=== PATIENT | male | born 1990 | race Caucasian/White ===

== ENCOUNTER 2017-03-10 17:50 | Inpatient (IN) | payer OTHER ==
[2017-03-10 18:06] VITALS: BMI 29.9
--- NOTE | 2017-03-10 18:08 | PDOC ---
Rapid Medical Evaluation Chief Complaint: Substance Abuse Time Seen by Provider: 03/10/17 18:04 Medical Evaluation: Allergies Allergy/AdvReac Type Severity Reaction Status Date / Time No Known Allergies Allergy Verified 03/10/17 18:00 03/10/17 18:05 26yo male patient with history of alcohol abuse presented to ED with family c/o chest pain, and wanting rehab. Family states they tried to get patient into [address], but they would like patient sober. Patient cousin states he became concerned because patient c/o chest pain earlier.
[2017-03-10 18:26] LABS: BASO % 2.6 % (0-2.0); EOS % 0.1 % (0-4.5); HEMOGLOBIN 12.2 GM/dL (11.7-16.9); LYMPH % 17.2 % (8-40); MCH 24.2 pg (25.7-33.7); MCHC 32.1 g/dl (32.0-35.9); MEAN CELL VOLUME 75.6 fl (80-96); MONO % 11.6 % (3.8-10.2); NEUT % 68.5 % (42.8-82.8); PLATELET COUNT 113 K/MM3 (134-434); RBC 5.03 M/mm3 (4.00-5.60); RDW 21.4 % (11.9-15.9); WHITE BLOOD COUNT 4.4 K/mm3 (4.0-10.0)
--- NOTE | 2017-03-10 18:33 | PDOC ---
Attending Attestation - Resident Resident Name: Antoni Hassan - HPI HPI: 03/11/17 01:40 Pt presents to the ED complaining of left sided chest pain and epigastric pain following several days of heavy drinking. Denies fever, nausea or vomiting. Family is very concerned about the patient's heavy drinking and is attempting to obtain rehab for him. - Physicial Exam PE: 03/11/17 01:41 Agree with resident exam. Patient is alert and oriented. abdomen is non tender. patient is calm and cooperative without signs of sever ETOH withdrawal. - Medical Decision Making 03/11/17 01:42 Pt presents to the ED complaining of chest pain after binge drinking. EKg shows no signs of ischemia, but CK and initial troponin are mildly elevated. patient also has elevated lipase. Will give IV hydration, admit to observation for continued monitoring and IV hydration, repeat cardiac enzymes.
--- NOTE | 2017-03-10 19:07 | PDOC ---
History of Present Illness - General Chief Complaint: Substance Abuse Stated Complaint: DETOX Time Seen by Provider: 03/10/17 18:15 - History of Present Illness Initial Comments: 03/10/17 18:53 Pt is a 26 y/o M with PMH EtOH abuse. Pt is a poor historian accompanied by family who admits to possibly being still somewhat intoxicated. Pt states he used to drink occasionally when he lived in [place] until 6 mo ago when he moved to [place] and began drinking heavily. He currently drinks roughly 12 beers and a quart of hard liquor daily. Approximately 2 weeks ago, around he used cocaine and had a single episode of bloody vomit not necessarily at the same time (pt cannot remember many details surrounding those events). Pt's last drink was 3pm yesterday. He went to [facility] yesterday but family states he was not seen by a doctor so they eventually left and this afternoon decided to come here. Currently, pt complains of vague cp and abd pain. He is unable to characterize the pain but states that is has been happening on and off for the last 2 weeks. He also had a nosebleed yest which stopped on its own. Today, pt denies nausea, vomiting, diarrhea, urinary symptoms. Past History - Past Medical History Allergies/Adverse Reactions: Allergies Allergy/AdvReac Type Severity Reaction Status Date / Time No Known Allergies Allergy Verified 03/10/17 18:00 Home Medications: Ambulatory Orders NK [No Known Home Medication] 03/10/17 COPD: No Other medical history: DENIES. - Suicide/Smoking/Psychosocial Hx Smoking History: Current every day smoker Have you smoked in the past 12 months: Yes Number of Cigarettes Smoked Daily: 10 Information on smoking cessation initiated: No Hx Alcohol Use: Yes (3 BOTTLES OF VODKA DAILY) Substance Use Type: Alcohol Review of Systems - Review of Systems Able to Perform ROS?: Yes Is the patient limited Georgian proficient: Yes Constitutional: Yes: Symptoms Reported. No: Chills, Diaphoresis, Fever HEENTM: Yes: Symptoms Reported. No: Eye Pain, Blurred Vision Respiratory: Yes: Symptoms reported. No: Cough, Shortness of Breath Cardiac (ROS): Yes: Symptoms Reported, Chest Pain. No: Edema ABD/GI: Yes: Vomiting. No: Abdominal Distended, Blood Streaked Bowels, Constipated, Diarrhea, Rectal Bleeding, Abdominal cramping : Yes: Symptoms Reported. No: Burning, Dysuria, Discharge, Flank Pain, Hematuria Neurological: Yes: Symptoms reported, Headache *Physical Exam - Vital Signs Last Vital Signs Temp Pulse Resp BP Pulse Ox 98.4 F 76 16 149/88 95 03/10/17 18:00 03/10/17 18:00 03/10/17 18:00 03/10/17 18:00 03/10/17 18:00 - Physical Exam General Appearance: Yes: Nourished, Appropriately Dressed, Intoxicated (appears drowsy. Slurrs speech). No: Apparent Distress HEENT: positive: EOMI, NICCI. negative: Normal ENT Inspection (white leukoplakia , dry membarnes), Tonsillar Exudate, Tonsillar Erythema, Rhinorrhea Neck: positive: Supple. negative: Tender Respiratory/Chest: positive: Lungs Clear, Normal Breath Sounds. negative: Chest Tender, Respiratory Distress Cardiovascular: positive: Regular Rhythm, S1, S2, Tachycardia Vascular Pulses: Dorsalis-Pedis (R): 2+, Doralis-Pedis (L): 2+ Gastrointestinal/Abdominal: positive: Normal Bowel Sounds, Tender (LUQ), Soft, Other (no shifting dullness appreciated). negative: Guarding, Rebound Musculoskeletal: negative: CVA Tenderness Neurologic: positive: central services tech II-XII NML intact, Fully Oriented, Motor Strength 5/ 5. negative: Alert (drowsy) ED Treatment Course - LABORATORY CBC & Chemistry Diagram: 03/10/17 18:15 03/10/17 18:15 - ADDITIONAL ORDERS Additional order review: 03/10/17 18:15 RBC 5.03 MCV 75.6 L MCHC 32.1 RDW 21.4 H MPV 7.0 L Neutrophils % 68.5 Lymphocytes % 17.2 Monocytes % 11.6 H Eosinophils % 0.1 Basophils % 2.6 H Medical Decision Making - Medical Decision Making 03/10/17 19:11 Pt is a 26 y/o M with EtOH abuse and dependence who presents to the ED with cp, abdominal pain, malaise, bloody vomit 2 weeks ago. Plan -cbc -cmp -lipase -TGs -cardiac profile 03/10/17 20:07 Ketones, blood, and protein in urine Pt has likely not been eating well. gave banana bag 03/10/17 20:47 03/10/17 22:50 Labs significant for transaminitis, elevated CK, elevated lipase, pos Tn ( unlikely ACS as pt is young without preexisting heart disease or risk factors) 03/11/17 00:11 Spoke with hospitalist who accepts pt for admission for impending alcohol withdrawal. *DC/Admit/Observation/Transfer Diagnosis at time of Disposition: Withdrawal symptoms, alcohol Qualifiers: Complication of substance-induced condition: uncomplicated Qualified Code(s): F10.230 - Alcohol dependence with withdrawal, uncomplicated - Discharge Dispostion Disposition: HOME Condition at time of disposition: Stable Admit: Yes - Referrals - Patient Instructions - Post Discharge Activity
[2017-03-10 19:09] LABS: URINE APPEARANCE SLCLOUDY; URINE BLOOD 2+ (NEGATIVE); URINE COLOR AMBER; URINE GLUCOSE (UA) 1+ (NEGATIVE); URINE KETONE 2+ (NEGATIVE); URINE LEUK ESTERASE NEGATIVE (NEGATIVE); URINE NITRITE NEGATIVE (NEGATIVE); URINE UROBILINOGEN 4.0 E.U/dl mg/dL (0.2-1.0)
[2017-03-10 19:10] LABS: URINE PROTEIN 3+ (NEGATIVE)
[2017-03-10 19:13] LABS: URINE AMPHETAMINES NEGATIVE ng/ml (CUTOFF=500)
[2017-03-10 19:14] LABS: COCAINE, UR NEGATIVE ng/ml (CUTOFF=300); EPI CELLS RARE /HPF (FEW); GRANULAR CASTS 6 /lpf; METHADONE, UR NEGATIVE ng/ml (CUTOFF=300); OPIATES, URI NEGATIVE ng/ml (CUTOFF=300); PHENCYCLIDINE,URINE NEGATIVE ng/ml (CUTOFF=25); URINE BARBITURATES NEGATIVE ng/ml (CUTOFF=200); URINE BENZODIAZEPINES NEGATIVE ng/ml (CUTOFF=200); URINE MUCUS RARE
[2017-03-10] MEDS ORDERED: FOLIC ACID INJECTION - 1 MG, THIAMINE HCL 100 MG, MULTIVIT INJECTION ADULT 10 ML in SOD... IVPB ONE (20:29)
[2017-03-10 21:23] LABS: ALBUMIN 3.6 g/dl (3.4-5.0); AMYLASE 50 U/L (25-115); ANION GAP 16 (8-16); BILIRUBIN,TOTAL 2.2 mg/dL (0.2-1.0); BLOOD UREA NITROGEN 7 mg/dL (7-18); CHLORIDE 91 mmol/L (98-107); CO2 23 mmol/L (21-32); CREATININE 0.9 mg/dL (0.7-1.3); GLUCOSE,RANDOM 104 mg/dL (74-106); POTASSIUM 3.6 mmol/L (3.5-5.1); SGPT/ALT 159 U/L (12-78); SODIUM 130 mmol/L (136-145); TOT PROT 8.7 g/dl (6.4-8.2)
[2017-03-10 21:33] LABS: LIPASE 695 U/L (73-393); SGOT/AST 404 U/L (15-37)
[2017-03-10 21:36] LABS: ALK PHOS 139 U/L (45-117)
[2017-03-10] MEDS ORDERED: chlordiazePOXIDE HCL 25 MG CAPSULE PO ONE (23:53)
[2017-03-11] MEDS ORDERED: chlordiazePOXIDE HCL 25 MG CAPSULE ONE (00:24)
[2017-03-11 01:13] LABS: ADD RBC MORPHOLOGY YES; ANISOCYTOSIS 2+; MACROCYTOSIS 1+
[2017-03-11 01:14] LABS: PLATELET ESTIMATE SLT DECREASE
[2017-03-11] MEDS ORDERED: ONDANSETRON 4 MG/2 ML VIAL IVPUSH PRN (04:52)
[2017-03-11] MEDS ORDERED: LORazepam 1 MG TABLET PO PRN ×2 (05:00→14:13)
[2017-03-11] MEDS ORDERED: FOLIC ACID INJECTION - 1 MG, THIAMINE HCL 100 MG, MULTIVIT INJECTION ADULT 10 ML in SOD... IVPB ONE (05:30)
--- NOTE | 2017-03-11 06:07 | PN ---
Teaching Attending Note Name of Resident: Isabel Escobedo ATTENDING PHYSICIAN STATEMENT I saw and evaluated the patient. Yudy data, imaging reviewed/ I reviewed the resident's note and discussed the case with the resident. I agree with the resident's findings and plan as documented. SUBJECTIVE: 26 y/o M with PMH EtOH abuse, says he has been drinking beers and bottle of liquor for at least 3 years. Admits to using cocaine on karson. Pt presented intoxicated last drink was about yesterday. He reports feeling nausea and uneasiness. Given Librium in the ER. OBJECTIVE: Last Vital Signs Temp Pulse Resp BP Pulse Ox 98.4 F 76 16 149/88 95 03/10/17 18:00 03/10/17 18:00 03/10/17 18:00 03/10/17 18:00 03/10/17 18:00 general- disheveled, very tremulous, follows commands, fluent speech heent- at, nc, moist oral mucosa neck- supple cv-s1+s2+ rrr chest- cta b/l abdomen -mild RUQ discomfort upo palpaiton skin- no visible rashes Abnormal Lab Results 03/10/17 03/10/17 03/10/17 18:15 18:15 18:15 MCV 75.6 L MCH 24.2 L RDW 21.4 H Plt Count 113 L MPV 7.0 L Monocytes % 11.6 H Basophils % 2.6 H Sodium 130 L Chloride 91 L Calcium 8.0 L Total Bilirubin 2.2 H AST 404 H ALT 159 H Alkaline Phosphatase 139 H Creatine Kinase 2943 H CK-MB (CK-2) 31.824 H Troponin I 0.07 H Total Protein 8.7 H Lipase 695 H Urine Protein Urine Glucose (UA) Urine Ketones Urine Blood Alcohol, Quantitative 408.9 H* 03/10/17 18:20 MCV MCH RDW Plt Count MPV Monocytes % Basophils % Sodium Chloride Calcium Total Bilirubin AST ALT Alkaline Phosphatase Creatine Kinase CK-MB (CK-2) Troponin I Total Protein Lipase Urine Protein 3+ H Urine Glucose (UA) 1+ H Urine Ketones 2+ H Urine Blood 2+ H Alcohol, Quantitative ASSESSMENT AND PLAN: #Impending EtOH withdrawal - very high Etoh level >400 and likely high tolerance. -lorazepam 2 mg PO q6hrs standing -lorazepam 2mg IV q4hrs -IV fluid hydration -banana bag with folate, thiamine, MV -CIWA protocol -check Mg and PHos and supplement PRN -Zofran PRN -NPO for now #acute hepatitis- hepatotoxic transaminitis pattern. Likely 2/2 to etoh abuse. -avoid hepatotoxic meds -hepatitis panel -tylenol level -trend LFTs -Liver U/S #Thrombocytopenia- no signs of bleeding. Likely 2/2 to EtOH ingestion #Chest pain -unlikely acs as pt is young, however given recent cocain use, would obtain EKG and repeat troponin. -EKG -CXR -repeat troponin DVT ppx -SCDs -
[2017-03-11] MEDS ORDERED: FOLIC ACID 1 MG TABLET (FP) PO ONE (06:20)
--- NOTE | 2017-03-11 06:22 | HP ---
CHIEF COMPLAINT: chest pain HISTORY OF PRESENT ILLNESS: 26M with PMH of etoh abuse, presents with chest pain. Pt reports 1 episode of hematemesis on Eva Francesca after using cocaine, after which he developed a chronic cough. Pt c/o Left upper chest pain since the hematemesis/cocaine/ Eva Francesca which he attributes to the cough. Chest pain is reproducible on exam. Pt's last drink was 03/09/17. Pt is mostly concerned with his chest pain , but also c/o diffuse abdominal pain and nausea. Pt reports not eating much for days, but declines a sandwich offered. Pt denies vomiting, sob, fever, chills. ER course was notable for: (1) banana bag, Librium 50mg (2) transaminitis on cmp (3) mildly elevated trop 0.07 PAST MEDICAL HISTORY: none PAST SURGICAL HISTORY: none Social History: Smokin/2 ppd Alcohol: 12 beers + 1 quart hard liquor Drugs: cocaine Allergies No Known Allergies Allergy (Verified 03/10/17 18:00) HOME MEDICATIONS: Home Medications Medication Instructions Recorded NK [No Known Home Medication] 03/10/17 REVIEW OF SYSTEMS CONSTITUTIONAL: loss of appetite Absent: fever, chills, diaphoresis HEENT: Absent: rhinorrhea, nasal congestion, eye pain, visual changes CARDIOVASCULAR: chest pain Absent: peripheral edema RESPIRATORY: Absent: cough, shortness of breathwheezing, stridor GASTROINTESTINAL: abdominal pain, nausea Absent: abdominal distension, vomiting, diarrhea, constipation, melena, hematochezia GENITOURINARY: Absent: dysuria, frequency, urgency, hesitancy, hematuria, flank pain, genital pain MUSCULOSKELETAL: Absent: myalgia, arthralgia SKIN: Absent: rash, itching, pallor HEMATOLOGIC/IMMUNOLOGIC: Absent: easy bleeding, easy bruising, lymphadenopathy, frequent infections NEUROLOGIC: trembling/shakes, headache - resolved upon reassessment though no medication was given Absent: focal weakness or paresthesias PHYSICAL EXAMINATION Vital Signs - 24 hr 03/10/17 18:00 Temperature 98.4 F Pulse Rate 76 Respiratory 16 Rate Blood Pressure 149/88 O2 Sat by Pulse 95 Oximetry (%) GENERAL: Awake, alert, and fully oriented, in no acute distress. No longer intoxicated, however, still a poor historian. HEAD: Normal with no signs of trauma. EYES: Extraocular movements intact, sclera anicteric, conjunctiva clear. No lid lag. EARS, NOSE, THROAT: +thrush on tongue. NECK: Supple without lymphadenopathy, JVD, or masses. LUNGS: Breath sounds equal, clear to auscultation bilaterally. No wheezes, and no crackles. No accessory muscle use. CHEST: +tenderness to palpation of Left pectoral muscle HEART: Regular rate and rhythm, +S1/S2. ABDOMEN: +mild Left upper quadrant tenderness. Soft, not distended, normoactive bowel sounds, no guarding. -hepatojugular reflux, -shifting dullness. MUSCULOSKELETAL: Normal range of motion at all joints. No bony deformities or tenderness. LOWER EXTREMITIES: Warm, well-perfused. No calf tenderness. No peripheral edema. SKIN: Warm, dry, normal turgor, no rashes or lesions noted. Laboratory Results - last 24 hr 03/10/17 03/10/17 03/10/17 18:15 18:15 18:15 WBC 4.4 RBC 5.03 Hgb 12.2 Hct 38.0 MCV 75.6 L MCH 24.2 L MCHC 32.1 RDW 21.4 H Plt Count 113 L MPV 7.0 L Neutrophils % 68.5 Lymphocytes % 17.2 Monocytes % 11.6 H Eosinophils % 0.1 Basophils % 2.6 H Hypochromia 1+ Platelet Estimate Slt decrease Platelet Comment No clotting detected Anisocytosis 2+ Microcytosis 1+ Macrocytosis 1+ Sodium 130 L Potassium 3.6 Chloride 91 L Carbon Dioxide 23 Anion Gap 16 BUN 7 Creatinine 0.9 Creat Clearance w eGFR > 60 Random Glucose 104 Calcium 8.0 L Total Bilirubin 2.2 H AST 404 H ALT 159 H Alkaline Phosphatase 139 H Creatine Kinase 2943 H Creatine Kinase Index 1.0 CK-MB (CK-2) 31.824 H Troponin I 0.07 H Total Protein 8.7 H Albumin 3.6 Triglycerides Total Amylase 50 Lipase 695 H Urine Color Urine Appearance Urine pH Ur Specific Boaz Urine Protein Urine Glucose (UA) Urine Ketones Urine Blood Urine Nitrite Urine Bilirubin Urine Urobilinogen Ur Leukocyte Esterase Urine WBC (Auto) Urine RBC (Auto) Ur Epithelial Cells Granular Casts Urine Mucus Opiates Screen Methadone Screen Barbiturate Screen Phencyclidine Screen Ur Amphetamines Screen MDMA (Ecstasy) Screen Benzodiazepines Screen Cocaine Screen U Marijuana (THC) Screen Alcohol, Quantitative 408.9 H* 03/10/17 03/10/17 03/11/17 18:20 18:20 00:33 WBC RBC Hgb Hct MCV MCH MCHC RDW Plt Count MPV Neutrophils % Lymphocytes % Monocytes % Eosinophils % Basophils % Hypochromia Platelet Estimate Platelet Comment Anisocytosis Microcytosis Macrocytosis Sodium Potassium Chloride Carbon Dioxide Anion Gap BUN Creatinine Creat Clearance w eGFR Random Glucose Calcium Total Bilirubin AST ALT Alkaline Phosphatase Creatine Kinase Creatine Kinase Index CK-MB (CK-2) Troponin I Total Protein Albumin Triglycerides 128 Total Amylase Lipase Urine Color [place] Urine Appearance Slcloudy Urine pH 6.0 Ur Specific Boaz 1.030 Urine Protein 3+ H Urine Glucose (UA) 1+ H Urine Ketones 2+ H Urine Blood 2+ H Urine Nitrite Negative Urine Bilirubin 2.0 Urine Urobilinogen 4.0 e.u/dl Ur Leukocyte Esterase Negative Urine WBC (Auto) 1 Urine RBC (Auto) 9 Ur Epithelial Cells Rare Granular Casts 6 Urine Mucus Rare Opiates Screen Negative Methadone Screen Negative Barbiturate Screen Negative Phencyclidine Screen Negative Ur Amphetamines Screen Negative MDMA (Ecstasy) Screen Negative Benzodiazepines Screen Negative Cocaine Screen Negative U Marijuana (THC) Screen Negative Alcohol, Quantitative ASSESSMENT/PLAN: 26M with PMH of etoh abuse, presents with chest pain, admitted to Med-Surg inpatient for alcohol withdrawal syndrome. # chest pain - Ddx: musculoskeletal from cough vs cocaine chest pain vs ACS ( less likely) - trend trop - f/u CXR - f/u EKG # etoh withdrawal - ethanol 400+ - CIWA score = 8 - Ativan 2mg po q6hr standing + Ativan 2mg IVpush q4hr prn added - fall precautions - MVI, thiamine, folic acid # nausea - likely 2/2 etoh withdrawal - Zofran added - check EKG for QTc # transaminitis - likely 2/2 liver disease from hx of etoh - f/u hepatitis panel - f/u Liver US - continue to monitor # thrush on tongue - pt consented to HIV test, f/u - monitor, consider Nystatin # FEN - Fluids: banana bag x 2 since arrival - Electrolytes: hyponatremia noted, consider hydration with NS after 2nd banana bag finishes, continue to monitor - Nutrition: npo for now # Prophylaxis - DVT ppx with magdy SCDs . Visit type - Emergency Visit Emergency Visit: Yes ED Registration Date: 03/11/17 Care time: The patient presented to the Emergency Department on the above date and was hospitalized for further evaluation of their emergent condition. - New Patient This patient is new to me today: Yes Date on this admission: 03/11/17 - Critical Care Critical Care patient: No
[2017-03-11] MEDS: LORazepam 2 MG/ML SDV VIAL IVPUSH PRN ×4 (06:47→23:37)
[2017-03-11 09:29] LABS: HEMATOCRIT 34.2 % (35.4-49); HEMOGLOBIN 10.9 GM/dL (11.7-16.9); MCH 24.3 pg (25.7-33.7); MCHC 31.7 g/dl (32.0-35.9); MEAN CELL VOLUME 76.6 fl (80-96); MEAN PLT VOLUME 7.5 fl (7.5-11.1); PLATELET COUNT 76 K/MM3 (134-434); RBC 4.47 M/mm3 (4.00-5.60); WHITE BLOOD COUNT 5.4 K/mm3 (4.0-10.0)
[2017-03-11 09:42] LABS: INR 1.15 (0.82-1.09)
[2017-03-11 09:56] LABS: ALBUMIN 3.5 g/dl (3.4-5.0); ANION GAP 16 (8-16); BLOOD UREA NITROGEN 6 mg/dL (7-18); CALCIUM 7.6 mg/dL (8.5-10.1); CHLORIDE 96 mmol/L (98-107); CO2 22 mmol/L (21-32); CREATININE 0.7 mg/dL (0.7-1.3); GLUCOSE,RANDOM 76 mg/dL (74-106); MAGNESIUM 1.6 mg/dL (1.8-2.4); PHOSPHOROUS 3.1 mg/dL (2.5-4.9); POTASSIUM 3.4 mmol/L (3.5-5.1); SGOT/AST 333 U/L (15-37); SGPT/ALT 135 U/L (12-78); SODIUM 134 mmol/L (136-145)
--- NOTE | 2017-03-11 09:59 | PN ---
Teaching Attending Note Name of Resident: Linda Holt ATTENDING PHYSICIAN STATEMENT I saw and evaluated the patient. I reviewed the resident's note and discussed the case with the resident. I agree with the resident's findings and plan as documented. SUBJECTIVE: reports vomiting up blood since karson, , cough , L sided cp for 2 weeks . reports fallin a while ago( not sure when ) , Noticed black stool 3 days ago. has abd pain in LLQ . reports using marijuana and cocaine has OCASIO now , no visual changes or weakness. feels nauseous. OBJECTIVE: NAD , AAox3 HEENT: EOMI, minimal deviation of L eye to R. no jaundice , no facial droop. MMM. no JVD CV: RRR, no MRG lUngs : CTAB Ext: no edema , has tremor in hands, . scally dry skin on feet, moist whitish skin among toes MS : TTP in L chest wall . Abd: soft, obese, TTP in epigastric area, , no rebound tenderness or guarding, liver is palpated and percussed 2 cm below medial costal margin. + shifting dullness. Neuro : EOMI, round equal reactive pupils , L eye medial deviation , no facial droop, tongue at mid line , nl facial sensation , strength 5/5 in upper and lower extremities proximally and distally. Rectal exam with green liquid , neg for OB ASSESSMENT AND PLAN: 26 y/o man with no known PMH and which alcohol, cocaine and marijuana use , who presented due to CP . he was found to have transaminitis and upper GI bleed 1- CP : MS in etiology with TTP . recent fall, need to r/o rib Fx - check Rib xray . - EKG with no acute ischemic changes , just RBBB 2- Alcohol withdrawal: - ativan Iv and PO PRN - thiamine and folate . - NO signs of Wernicke's . 3- POssible upper GI bleed: reported bright red blood with vomiting and black stool . also hematemesis x 1 yr rectal with neg OB. No hematemesis here, but HB dropped to 10 after 1 L of fluids suspect either Vandana Brumfield tear or variceal bleed ( possibly has cirrhosis), or erosive gastritis from alcohol - check more OB ins tool - start PPI gtt - keep NPO - consult GI for possible EGD - check iron studies , b12 , folate . r/o iron def anemia due to microcytosis 4- Transaminitis: does not meet all criteria for alcoholic hepatitis. US with no choecystitis or CBD dilation likely due to alcohol liver toxicity - GI input appreciated, ? alcoholic hepatitis - check INR to calculate DF if indicated - follow LFTS - suspect cirrhosis background . - check viral hepatitis panel 5- OCASIO : with h/o fall . check CT of head . NL neuro exam except fr L eye medial deviation 6- Possible cirrhosis : thrombocytopenia , alcohol use, enlarged liver, possible ascitis . - check INR - might need MRCP. 7- SCDs .
[2017-03-11] MEDS ORDERED: PANTOPRAZOLE SODIUM 80 MG in SODIUM CHLORIDE 100 ML IVPB SCH (10:15)
[2017-03-11 10:19] LABS: ALK PHOS 121 U/L (45-117); BILIRUBIN,TOTAL 2.4 mg/dL (0.2-1.0); TOT PROT 7.7 g/dl (6.4-8.2)
[2017-03-11] MEDS ORDERED: KCL 10 MEQ IVPB 10 MEQ/100 ML INFUS.BAG IVPB SCH (10:30)
[2017-03-11] MEDS: THIAMINE HCL 100 MG TABLET (FP) PO SCH (10:59)
[2017-03-11] MEDS: MULTIVITAMINS (DAILY MVI) TABLET (FP) PO SCH (10:59)
[2017-03-11] MEDS: SODIUM CHLORIDE 1,000 ML IV SCH (10:59)
[2017-03-11] MEDS ORDERED: PANTOPRAZOLE SODIUM 160 MG in DEXTROSE 5%-WATER - 290 ML IVPB SCH (11:00)
[2017-03-11] MEDS ORDERED: MAGNESIUM SULF 50% (8.12 MEQ/2 ML-1 GM VIAL) IVPB ONE (11:00)
[2017-03-11] MEDS: FOLIC ACID 1 MG TABLET (FP) PO SCH (11:25)
[2017-03-11 12:48] LABS: INR 1.14 (0.82-1.09); PROTHROMBIN TIME (PATIENT) 12.9 SEC (9.98-11.88)
[2017-03-11 13:34] LABS: HEMATOCRIT 33.7 % (35.4-49); HEMOGLOBIN 10.7 GM/dL (11.7-16.9); MCH 24.4 pg (25.7-33.7); MCHC 31.7 g/dl (32.0-35.9); MEAN PLT VOLUME 8.4 fl (7.5-11.1); PLATELET COUNT 79 K/MM3 (134-434); RBC 4.38 M/mm3 (4.00-5.60); RDW 21.1 % (11.9-15.9); WHITE BLOOD COUNT 5.4 K/mm3 (4.0-10.0)
--- NOTE | 2017-03-11 14:18 | HP ---
CHIEF COMPLAINT: PCP: HISTORY OF PRESENT ILLNESS: ER course was notable for: (1) (2) (3) Recent Travel: PAST MEDICAL HISTORY: PAST SURGICAL HISTORY: Social History: Smoking: Alcohol: Drugs: Family History: Allergies No Known Allergies Allergy (Verified 03/10/17 18:00) HOME MEDICATIONS: Home Medications Medication Instructions Recorded NK [No Known Home Medication] 03/10/17 REVIEW OF SYSTEMS CONSTITUTIONAL: Absent: fever, chills, diaphoresis, generalized weakness, malaise, loss of appetite, weight change HEENT: Absent: rhinorrhea, nasal congestion, throat pain, throat swelling, difficulty swallowing, mouth swelling, ear pain, eye pain, visual changes CARDIOVASCULAR: Absent: chest pain, syncope, palpitations, irregular heart rate, lightheadedness , peripheral edema RESPIRATORY: Absent: cough, shortness of breath, dyspnea with exertion, orthopnea, wheezing, stridor, hemoptysis GASTROINTESTINAL: Absent: abdominal pain, abdominal distension, nausea, vomiting, diarrhea, constipation, melena, hematochezia GENITOURINARY: Absent: dysuria, frequency, urgency, hesitancy, hematuria, flank pain, genital pain MUSCULOSKELETAL: Absent: myalgia, arthralgia, joint swelling, back pain, neck pain SKIN: Absent: rash, itching, pallor HEMATOLOGIC/IMMUNOLOGIC: Absent: easy bleeding, easy bruising, lymphadenopathy, frequent infections ENDOCRINE: Absent: unexplained weight gain, unexplained weight loss, heat intolerance, cold intolerance NEUROLOGIC: Absent: headache, focal weakness or paresthesias, dizziness, unsteady gait, seizure, mental status changes, bladder or bowel incontinence PSYCHIATRIC: Absent: anxiety, depression, suicidal or homicidal ideation, hallucinations. PHYSICAL EXAMINATION Vital Signs - 24 hr 03/10/17 03/11/17 03/11/17 18:00 04:50 06:38 Temperature 98.4 F 99.3 F 99.3 F Pulse Rate 76 Pulse Rate [ 110 H 117 H Apical] Respiratory 16 16 16 Rate Blood Pressure 149/88 Blood Pressure 130/78 142/83 [Left Arm] O2 Sat by Pulse 95 96 98 Oximetry (%) 03/11/17 03/11/17 03/11/17 09:00 09:03 09:59 Temperature 98.8 F 98.8 F Pulse Rate 125 H 115 H Pulse Rate [ Apical] Respiratory 22 22 18 Rate Blood Pressure 154/107 150/100 Blood Pressure [Left Arm] O2 Sat by Pulse Oximetry (%) 03/11/17 03/11/17 03/11/17 10:15 12:01 13:17 Temperature Pulse Rate 117 H 133 H Pulse Rate [ Apical] Respiratory 18 Rate Blood Pressure 160/77 162/92 Blood Pressure [Left Arm] O2 Sat by Pulse Oximetry (%) GENERAL: Awake, alert, and fully oriented, in no acute distress. HEAD: Normal with no signs of trauma. EYES: Pupils equal, round and reactive to light, extraocular movements intact, sclera anicteric, conjunctiva clear. No lid lag. EARS, NOSE, THROAT: Ears normal, nares patent, oropharynx clear without exudates. Moist mucous membranes. NECK: Normal range of motion, supple without lymphadenopathy, JVD, or masses. LUNGS: Breath sounds equal, clear to auscultation bilaterally. No wheezes, and no crackles. No accessory muscle use. HEART: Regular rate and rhythm, normal S1 and S2 without murmur, rub or gallop. ABDOMEN: Soft, nontender, not distended, normoactive bowel sounds, no guarding, no rebound, no masses. No hepatomegaly or splenomegaly. MUSCULOSKELETAL: Normal range of motion at all joints. No bony deformities or tenderness. No CVA tenderness. UPPER EXTREMITIES: 2+ pulses, warm, well-perfused. No cyanosis. No clubbing. No peripheral edema. LOWER EXTREMITIES: 2+ pulses, warm, well-perfused. No calf tenderness. No peripheral edema. NEUROLOGICAL: Cranial nerves II-XII intact. Normal speech. Normal gait. PSYCHIATRIC: Cooperative. Good eye contact. Appropriate mood and affect. SKIN: Warm, dry, normal turgor, no rashes or lesions noted, normal capillary refill. Laboratory Results - last 24 hr 03/10/17 03/10/17 03/10/17 18:15 18:15 18:15 WBC 4.4 RBC 5.03 Hgb 12.2 Hct 38.0 MCV 75.6 L MCH 24.2 L MCHC 32.1 RDW 21.4 H Plt Count 113 L MPV 7.0 L Neutrophils % 68.5 Lymphocytes % 17.2 Monocytes % 11.6 H Eosinophils % 0.1 Basophils % 2.6 H Hypochromia 1+ Platelet Estimate Slt decrease Platelet Comment No clotting detected Anisocytosis 2+ Microcytosis 1+ Macrocytosis 1+ PT with INR INR Sodium 130 L Potassium 3.6 Chloride 91 L Carbon Dioxide 23 Anion Gap 16 BUN 7 Creatinine 0.9 Creat Clearance w eGFR > 60 POC Glucometer Random Glucose 104 Calcium 8.0 L Phosphorus Magnesium Ferritin Total Bilirubin 2.2 H AST 404 H ALT 159 H Alkaline Phosphatase 139 H Creatine Kinase 2943 H Creatine Kinase Index 1.0 CK-MB (CK-2) 31.824 H Troponin I 0.07 H Total Protein 8.7 H Albumin 3.6 Triglycerides Total Amylase 50 Lipase 695 H Vitamin B12 Urine Color Urine Appearance Urine pH Ur Specific [place] Urine Protein Urine Glucose (UA) Urine Ketones Urine Blood Urine Nitrite Urine Bilirubin Urine Urobilinogen Ur Leukocyte Esterase Urine WBC (Auto) Urine RBC (Auto) Ur Epithelial Cells Granular Casts Urine Mucus Opiates Screen Methadone Screen Acetaminophen Barbiturate Screen Phencyclidine Screen Ur Amphetamines Screen MDMA (Ecstasy) Screen Benzodiazepines Screen Cocaine Screen U Marijuana (THC) Screen Alcohol, Quantitative 408.9 H* HIV 1&2 Antibody Screen HIV P24 Antigen 03/10/17 03/10/17 03/11/17 18:20 18:20 00:33 WBC RBC Hgb Hct MCV MCH MCHC RDW Plt Count MPV Neutrophils % Lymphocytes % Monocytes % Eosinophils % Basophils % Hypochromia Platelet Estimate Platelet Comment Anisocytosis Microcytosis Macrocytosis PT with INR INR Sodium Potassium Chloride Carbon Dioxide Anion Gap BUN Creatinine Creat Clearance w eGFR POC Glucometer Random Glucose Calcium Phosphorus Magnesium Ferritin 76.603 Total Bilirubin AST ALT Alkaline Phosphatase Creatine Kinase Creatine Kinase Index CK-MB (CK-2) Troponin I Total Protein Albumin Triglycerides 128 Total Amylase Lipase Vitamin B12 1188 H Urine Color [place] Urine Appearance Slcloudy Urine pH 6.0 Ur Specific [place] 1.030 Urine Protein 3+ H Urine Glucose (UA) 1+ H Urine Ketones 2+ H Urine Blood 2+ H Urine Nitrite Negative Urine Bilirubin 2.0 Urine Urobilinogen 4.0 e.u/dl Ur Leukocyte Esterase Negative Urine WBC (Auto) 1 Urine RBC (Auto) 9 Ur Epithelial Cells Rare Granular Casts 6 Urine Mucus Rare Opiates Screen Negative Methadone Screen Negative Acetaminophen Barbiturate Screen Negative Phencyclidine Screen Negative Ur Amphetamines Screen Negative MDMA (Ecstasy) Screen Negative Benzodiazepines Screen Negative Cocaine Screen Negative U Marijuana (THC) Screen Negative Alcohol, Quantitative HIV 1&2 Antibody Screen HIV P24 Antigen 03/11/17 03/11/17 03/11/17 06:19 09:00 09:00 WBC RBC Hgb Hct MCV MCH MCHC RDW Plt Count MPV Neutrophils % Lymphocytes % Monocytes % Eosinophils % Basophils % Hypochromia Platelet Estimate Platelet Comment Anisocytosis Microcytosis Macrocytosis PT with INR INR Sodium 134 L Potassium 3.4 L Chloride 96 L Carbon Dioxide 22 Anion Gap 16 BUN 6 L Creatinine 0.7 D Creat Clearance w eGFR > 60 POC Glucometer 84.81652 Random Glucose 76 D Calcium 7.6 L Phosphorus 3.1 Magnesium 1.6 L Ferritin Total Bilirubin 2.4 H AST 333 H ALT 135 H Alkaline Phosphatase 121 H Creatine Kinase 1963 H Creatine Kinase Index 0.6 CK-MB (CK-2) 12.13 H Troponin I 0.08 H Total Protein 7.7 Albumin 3.5 Triglycerides Total Amylase Lipase Vitamin B12 Urine Color Urine Appearance Urine pH Ur Specific [place] Urine Protein Urine Glucose (UA) Urine Ketones Urine Blood Urine Nitrite Urine Bilirubin Urine Urobilinogen Ur Leukocyte Esterase Urine WBC (Auto) Urine RBC (Auto) Ur Epithelial Cells Granular Casts Urine Mucus Opiates Screen Methadone Screen Acetaminophen Barbiturate Screen Phencyclidine Screen Ur Amphetamines Screen MDMA (Ecstasy) Screen Benzodiazepines Screen Cocaine Screen U Marijuana (THC) Screen Alcohol, Quantitative HIV 1&2 Antibody Screen Negative HIV P24 Antigen Negative 03/11/17 03/11/17 03/11/17 09:00 09:00 09:00 WBC 5.4 RBC 4.47 Hgb 10.9 L D Hct 34.2 L MCV 76.6 L MCH 24.3 L MCHC 31.7 L RDW 21.0 H Plt Count 76 L D MPV 7.5 Neutrophils % Lymphocytes % Monocytes % Eosinophils % Basophils % Hypochromia Platelet Estimate Platelet Comment Anisocytosis Microcytosis Macrocytosis PT with INR 13.00 H INR 1.15 H Sodium Potassium Chloride Carbon Dioxide Anion Gap BUN Creatinine Creat Clearance w eGFR POC Glucometer Random Glucose Calcium Phosphorus Magnesium Ferritin Total Bilirubin AST ALT Alkaline Phosphatase Creatine Kinase Creatine Kinase Index CK-MB (CK-2) Troponin I Total Protein Albumin Triglycerides Total Amylase Lipase Vitamin B12 Urine Color Urine Appearance Urine pH Ur Specific [place] Urine Protein Urine Glucose (UA) Urine Ketones Urine Blood Urine Nitrite Urine Bilirubin Urine Urobilinogen Ur Leukocyte Esterase Urine WBC (Auto) Urine RBC (Auto) Ur Epithelial Cells Granular Casts Urine Mucus Opiates Screen Methadone Screen Acetaminophen < 10 L Barbiturate Screen Phencyclidine Screen Ur Amphetamines Screen MDMA (Ecstasy) Screen Benzodiazepines Screen Cocaine Screen U Marijuana (THC) Screen Alcohol, Quantitative HIV 1&2 Antibody Screen HIV P24 Antigen 03/11/17 03/11/17 12:15 12:15 WBC 5.4 RBC 4.38 Hgb 10.7 L Hct 33.7 L MCV 77.0 L MCH 24.4 L MCHC 31.7 L RDW 21.1 H Plt Count 79 L MPV 8.4 D Neutrophils % Lymphocytes % Monocytes % Eosinophils % Basophils % Hypochromia Platelet Estimate Platelet Comment Anisocytosis Microcytosis Macrocytosis PT with INR 12.90 H INR 1.14 Sodium Potassium Chloride Carbon Dioxide Anion Gap BUN Creatinine Creat Clearance w eGFR POC Glucometer Random Glucose Calcium Phosphorus Magnesium Ferritin Total Bilirubin AST ALT Alkaline Phosphatase Creatine Kinase Creatine Kinase Index CK-MB (CK-2) Troponin I Total Protein Albumin Triglycerides Total Amylase Lipase Vitamin B12 Urine Color Urine Appearance Urine pH Ur Specific [place] Urine Protein Urine Glucose (UA) Urine Ketones Urine Blood Urine Nitrite Urine Bilirubin Urine Urobilinogen Ur Leukocyte Esterase Urine WBC (Auto) Urine RBC (Auto) Ur Epithelial Cells Granular Casts Urine Mucus Opiates Screen Methadone Screen Acetaminophen Barbiturate Screen Phencyclidine Screen Ur Amphetamines Screen MDMA (Ecstasy) Screen Benzodiazepines Screen Cocaine Screen U Marijuana (THC) Screen Alcohol, Quantitative HIV 1&2 Antibody Screen HIV P24 Antigen ASSESSMENT/PLAN:
--- NOTE | 2017-03-11 14:20 | PN ---
Physical Exam: SUBJECTIVE: Patient seen and examined at bed side. Complaining of headache, dizziness and chest pain located in the left side, 7/10 in intensity, increases on movement, non radiating, no associated features. Is coughing up blood, about 1/2 a cup of blood, bright red in color, no clots. Since noon, has been having nose bleed from the left nostril which has slowed down in two hours. Patient came in to the ED with the chief complaint of Left sided chest pain since 2 months. Chest pain as described above, Gives h/o daily alcohol intake about 5-6 beers a day and a bottle of liquor/day. He works at a construction. Also mentions he snorted cocaine in [place] and hasn't taken any illicit drugs. No IV drug use. Patient also reports he had nausea, vomiting blood about 2 weeks ago, intermittently. Has right sided abdominal pain, 4/10 in intensity, non radiating. Patient reports he had similar episode in the past, about 2 years ago in [place] for which he was admitted but never had endoscopy or colonoscopy. Patient reported he noticed black colored stool since 3 days but this morning he said he hasn't noticed any blood in stool. Hasn't been able to eat since 3 days due to abdominal pain. Sleep disturbed. OBJECTIVE: Vital Signs Period Temp Pulse Resp BP Sys/Murphy Pulse Ox Last 24 Hr 98.4 F-99.3 F 76-133 16-22 130-162/77-107 95-98 GENERAL: The patient is young, awake, alert, and fully oriented, in no acute distress. HEAD: Normal with no signs of trauma. EYES: EOM intact, left medial deviation, pallor +, no icterus. ENT: Ears normal. moist mucous membranes, tongue-whitish plaque. NECK: Supple. Chest: Tenderness on even mild palpation amado in the left side. LUNGS: B/L Breath sounds equal, clear to auscultation bilaterally, no wheezes, no crackles, no accessory muscle use. HEART: Regular rate and rhythm, S1, S2 without murmur, rub or gallop. ABDOMEN: Asites +, shifting dullness but no thrill, Soft, tender to palpation in the right upper quadrant, hepatomegaly 2 cm from the costal margin, nondistended, normoactive bowel sounds, no guarding, no rebound. Per rectal: Greenish brownish stool, no blood, stool for occult blood negative- done at bed side. EXTREMITIES: 2+ pulses, warm, well-perfused, no edema, Onycomycosis + toes. NEUROLOGICAL: No facial droop, tremors in the extremities, power 5/5 in all extremities, Cranial nerves II through XII grossly intact. Normal speech, normal gait. PSYCH: Normal mood, normal affect. SKIN: Warm, dry, normal turgor, no rashes or lesions noted Laboratory Results - last 24 hr 03/10/17 03/10/17 03/10/17 18:15 18:15 18:15 WBC 4.4 RBC 5.03 Hgb 12.2 Hct 38.0 MCV 75.6 L MCH 24.2 L MCHC 32.1 RDW 21.4 H Plt Count 113 L MPV 7.0 L Neutrophils % 68.5 Lymphocytes % 17.2 Monocytes % 11.6 H Eosinophils % 0.1 Basophils % 2.6 H Hypochromia 1+ Platelet Estimate Slt decrease Platelet Comment No clotting detected Anisocytosis 2+ Microcytosis 1+ Macrocytosis 1+ PT with INR INR Sodium 130 L Potassium 3.6 Chloride 91 L Carbon Dioxide 23 Anion Gap 16 BUN 7 Creatinine 0.9 Creat Clearance w eGFR > 60 POC Glucometer Random Glucose 104 Calcium 8.0 L Phosphorus Magnesium Ferritin Total Bilirubin 2.2 H AST 404 H ALT 159 H Alkaline Phosphatase 139 H Creatine Kinase 2943 H Creatine Kinase Index 1.0 CK-MB (CK-2) 31.824 H Troponin I 0.07 H Total Protein 8.7 H Albumin 3.6 Triglycerides Total Amylase 50 Lipase 695 H Vitamin B12 Urine Color Urine Appearance Urine pH Ur Specific [place] Urine Protein Urine Glucose (UA) Urine Ketones Urine Blood Urine Nitrite Urine Bilirubin Urine Urobilinogen Ur Leukocyte Esterase Urine WBC (Auto) Urine RBC (Auto) Ur Epithelial Cells Granular Casts Urine Mucus Opiates Screen Methadone Screen Acetaminophen Barbiturate Screen Phencyclidine Screen Ur Amphetamines Screen MDMA (Ecstasy) Screen Benzodiazepines Screen Cocaine Screen U Marijuana (THC) Screen Alcohol, Quantitative 408.9 H* HIV 1&2 Antibody Screen HIV P24 Antigen 03/10/17 03/10/17 03/11/17 18:20 18:20 00:33 WBC RBC Hgb Hct MCV MCH MCHC RDW Plt Count MPV Neutrophils % Lymphocytes % Monocytes % Eosinophils % Basophils % Hypochromia Platelet Estimate Platelet Comment Anisocytosis Microcytosis Macrocytosis PT with INR INR Sodium Potassium Chloride Carbon Dioxide Anion Gap BUN Creatinine Creat Clearance w eGFR POC Glucometer Random Glucose Calcium Phosphorus Magnesium Ferritin 76.603 Total Bilirubin AST ALT Alkaline Phosphatase Creatine Kinase Creatine Kinase Index CK-MB (CK-2) Troponin I Total Protein Albumin Triglycerides 128 Total Amylase Lipase Vitamin B12 1188 H Urine Color [place] Urine Appearance Slcloudy Urine pH 6.0 Ur Specific [place] 1.030 Urine Protein 3+ H Urine Glucose (UA) 1+ H Urine Ketones 2+ H Urine Blood 2+ H Urine Nitrite Negative Urine Bilirubin 2.0 Urine Urobilinogen 4.0 e.u/dl Ur Leukocyte Esterase Negative Urine WBC (Auto) 1 Urine RBC (Auto) 9 Ur Epithelial Cells Rare Granular Casts 6 Urine Mucus Rare Opiates Screen Negative Methadone Screen Negative Acetaminophen Barbiturate Screen Negative Phencyclidine Screen Negative Ur Amphetamines Screen Negative MDMA (Ecstasy) Screen Negative Benzodiazepines Screen Negative Cocaine Screen Negative U Marijuana (THC) Screen Negative Alcohol, Quantitative HIV 1&2 Antibody Screen HIV P24 Antigen 03/11/17 03/11/17 03/11/17 06:19 09:00 09:00 WBC RBC Hgb Hct MCV MCH MCHC RDW Plt Count MPV Neutrophils % Lymphocytes % Monocytes % Eosinophils % Basophils % Hypochromia Platelet Estimate Platelet Comment Anisocytosis Microcytosis Macrocytosis PT with INR INR Sodium 134 L Potassium 3.4 L Chloride 96 L Carbon Dioxide 22 Anion Gap 16 BUN 6 L Creatinine 0.7 D Creat Clearance w eGFR > 60 POC Glucometer 84.11967 Random Glucose 76 D Calcium 7.6 L Phosphorus 3.1 Magnesium 1.6 L Ferritin Total Bilirubin 2.4 H AST 333 H ALT 135 H Alkaline Phosphatase 121 H Creatine Kinase 1963 H Creatine Kinase Index 0.6 CK-MB (CK-2) 12.13 H Troponin I 0.08 H Total Protein 7.7 Albumin 3.5 Triglycerides Total Amylase Lipase Vitamin B12 Urine Color Urine Appearance Urine pH Ur Specific [place] Urine Protein Urine Glucose (UA) Urine Ketones Urine Blood Urine Nitrite Urine Bilirubin Urine Urobilinogen Ur Leukocyte Esterase Urine WBC (Auto) Urine RBC (Auto) Ur Epithelial Cells Granular Casts Urine Mucus Opiates Screen Methadone Screen Acetaminophen Barbiturate Screen Phencyclidine Screen Ur Amphetamines Screen MDMA (Ecstasy) Screen Benzodiazepines Screen Cocaine Screen U Marijuana (THC) Screen Alcohol, Quantitative HIV 1&2 Antibody Screen Negative HIV P24 Antigen Negative 03/11/17 03/11/17 03/11/17 09:00 09:00 09:00 WBC 5.4 RBC 4.47 Hgb 10.9 L D Hct 34.2 L MCV 76.6 L MCH 24.3 L MCHC 31.7 L RDW 21.0 H Plt Count 76 L D MPV 7.5 Neutrophils % Lymphocytes % Monocytes % Eosinophils % Basophils % Hypochromia Platelet Estimate Platelet Comment Anisocytosis Microcytosis Macrocytosis PT with INR 13.00 H INR 1.15 H Sodium Potassium Chloride Carbon Dioxide Anion Gap BUN Creatinine Creat Clearance w eGFR POC Glucometer Random Glucose Calcium Phosphorus Magnesium Ferritin Total Bilirubin AST ALT Alkaline Phosphatase Creatine Kinase Creatine Kinase Index CK-MB (CK-2) Troponin I Total Protein Albumin Triglycerides Total Amylase Lipase Vitamin B12 Urine Color Urine Appearance Urine pH Ur Specific [place] Urine Protein Urine Glucose (UA) Urine Ketones Urine Blood Urine Nitrite Urine Bilirubin Urine Urobilinogen Ur Leukocyte Esterase Urine WBC (Auto) Urine RBC (Auto) Ur Epithelial Cells Granular Casts Urine Mucus Opiates Screen Methadone Screen Acetaminophen < 10 L Barbiturate Screen Phencyclidine Screen Ur Amphetamines Screen MDMA (Ecstasy) Screen Benzodiazepines Screen Cocaine Screen U Marijuana (THC) Screen Alcohol, Quantitative HIV 1&2 Antibody Screen HIV P24 Antigen 03/11/17 03/11/17 12:15 12:15 WBC 5.4 RBC 4.38 Hgb 10.7 L Hct 33.7 L MCV 77.0 L MCH 24.4 L MCHC 31.7 L RDW 21.1 H Plt Count 79 L MPV 8.4 D Neutrophils % Lymphocytes % Monocytes % Eosinophils % Basophils % Hypochromia Platelet Estimate Platelet Comment Anisocytosis Microcytosis Macrocytosis PT with INR 12.90 H INR 1.14 Sodium Potassium Chloride Carbon Dioxide Anion Gap BUN Creatinine Creat Clearance w eGFR POC Glucometer Random Glucose Calcium Phosphorus Magnesium Ferritin Total Bilirubin AST ALT Alkaline Phosphatase Creatine Kinase Creatine Kinase Index CK-MB (CK-2) Troponin I Total Protein Albumin Triglycerides Total Amylase Lipase Vitamin B12 Urine Color Urine Appearance Urine pH Ur Specific [place] Urine Protein Urine Glucose (UA) Urine Ketones Urine Blood Urine Nitrite Urine Bilirubin Urine Urobilinogen Ur Leukocyte Esterase Urine WBC (Auto) Urine RBC (Auto) Ur Epithelial Cells Granular Casts Urine Mucus Opiates Screen Methadone Screen Acetaminophen Barbiturate Screen Phencyclidine Screen Ur Amphetamines Screen MDMA (Ecstasy) Screen Benzodiazepines Screen Cocaine Screen U Marijuana (THC) Screen Alcohol, Quantitative HIV 1&2 Antibody Screen HIV P24 Antigen Active Medications Generic Name Dose Route Start Last Admin Trade Name Freq PRN Reason Stop Dose Admin Folic Acid 1 mg 03/11/17 11:00 03/11/17 11:25 Folic Acid - PO 1 mg DAILY GLORIA Administration Hydralazine HCl 25 mg 03/11/17 14:17 Apresoline - PO 03/11/17 14:18 ONCE ONE Pantoprazole Sodium 160 mg/ 290 mls @ 14.5 mls/hr 03/11/17 11:00 Dextrose IVPB Q20H GLORIA Sodium Chloride 1,000 mls @ 75 mls/hr 03/11/17 10:30 03/11/17 10:59 Normal Saline - IV Not Given ASDIR GLORIA Lorazepam 2 mg 03/11/17 04:52 03/11/17 13:26 Ativan Injection - IVPUSH 2 mg Q4H PRN Administration ANXIETY Lorazepam 2 mg 03/11/17 14:13 Ativan - PO Q4H PRN ANXIETY Multivitamins/Minerals/Vitamin C 1 tab 03/11/17 10:00 03/11/17 10:59 Tab-A-Vit - PO 1 tab DAILY GLORIA Administration Ondansetron HCl 4 mg 03/11/17 04:52 Zofran Injection IVPUSH Q4H PRN NAUSEA AND/OR VOMITING Thiamine HCl 100 mg 03/11/17 10:00 03/11/17 10:59 Vitamin B1 - PO 100 mg DAILY GLORIA Administration ASSESSMENT/PLAN: Patient is a 26 year old male with significant past medical history of Polysubstance abuse-alcohol and cocaine presented with Chest pain was found to have upper GI bleed and transaminitis. # Chest pain likely musculoskeletal due to coughing and vomiting. Has tenderness even on mild palpation. Would like to r/o ACS due to rising troponins Repeat EKG this morning: Sinus tachycardia, Qtc 483 no change from yesterday Transferred to [facility] for continuous cardiac monitoring Troponin increased from 0.07 ----> 0.08---> 0.08, repeat troponin CXR, rib xray ordered to r/o fracture-had recent fall 3 days ago # Alcohol withdrawal On arrival, alcohol level was 408 and CIWA score-8 Today he is Tachycardic to 130's, BP about 150's/90's Ativan 2mg PO Q4H gloria and Ativan 2mg Q4H IV PRN Cannot give him librium because of elevated liver enzymes If he goes into DT's, will put him on drip and transfer to ICU. Might need to be sent to detox inpatient once he is stable. Fall precautions # Nose bleed could be due to recent use of cocaine and also hypertension Pt started having nose bleed since noon today till 3pm. Stopped after applying pressure. Rhinorocket was not needed ENT consult requested. Spoke with Dr. Rocha who recommended to call him if the bleeding doesn't stop [place] nasal spray to moisturize his nasal cavity # Upper GI bleed likely secondary to alcohol use (variceal bleed) however it is questionable, spitting out blood could be due to nose bleed as well, could be agata rick tear, Stool for occult blood negative PPI drip discontinued, IV Protonix 40mg BID Dr. Swain consult appreciated Might need endoscopy if he is actively bleeding Hepatitis panel pending # Microcytic anemia likely due to GI bleed H/H 10.7/33.7, no BT needed at this time. Iron studies ordered for AM Needs Endoscopy once stable or if actively bleeding. # Polysubstance abuse-alcohol and cocaine U.tox negative for cocaine, pt stated he takes it on/off, last intake was in [facility] # Transaminitis RUQ pain with transaminitis. Will order USG of abdomen to r/o cholecystitis. Hepatitis panel pending Avoid nephrotoxic drugs. No librium # FEN IV NS @ 75mls/hr Electrolytes to be repeated in AM NPO # Prophylaxis For DVT: on SCDs, no heparin For GI: On Protonix # Code Status: Full Code # Dispo: Duration of stay unknown. Illness, Investigation and Plan of care explained to the patient. He verbalized understanding. Case seen and discussed with Dr. Levy. Visit type - Emergency Visit Emergency Visit: Yes ED Registration Date: 03/11/17 Care time: The patient presented to the Emergency Department on the above date and was hospitalized for further evaluation of their emergent condition. - New Patient This patient is new to me today: Yes Date on this admission: 03/11/17 - Critical Care Critical Care patient: No
--- NOTE | 2017-03-11 14:41 | CON.GI ---
Consult Consult Specialty:: GI: Dr. Newell covering for Dr. Santoyo who resumes coverage monday 03/13 Referred by:: Hospitalist Service Reason for Consultation:: Alcoholism / spitting up bood - History of Present Illness Chief Complaint: Patient a poor historian and uncooperative in using [employer] automatic glove former phone as noted above History of Present Illness: Attempted to communicate using [employer] invasive cardiologist [id number] however Mr. Barnhart was somnolent and kept dropping the phone. 26M alcoholic with ? recent cocaine use transferred from detox so that he could become sober prior to detox. Admtted, found to have elevated tropoinins, elevated liver transamnases along with alp/bili and CPK, thrombocytopenia, blood alcohol level of 408. Started having epistaxis and subsequently spit up blood. ? h/o rectal bleeding / melena a few days back per discussion with Dr. Levy. No overt rectal bleeding or melena reported as of yet. H/H has been stable from this morning until this afternoon. - History Source History Provided By: Medical Record Limitations to Obtaining History: Poor Historian - Past Medical History Psych: Yes: Addictions (alcohol, cocaine) - Past Surgical History Additional Surgical History: Unable to obtain - Alcohol/Substance Use Hx Alcohol Use: Yes (3 BOTTLES OF VODKA DAILY) History of Substance Use: reports: Cocaine - Smoking History Smoking history: Current every day smoker Have you smoked in the past 12 months: Yes Aproximately how many cigarettes per day: 10 - Social History Occupation: unable to obtain Place of : Other Home Medications - Allergies Allergies/Adverse Reactions: Allergies Allergy/AdvReac Type Severity Reaction Status Date / Time No Known Allergies Allergy Verified 03/10/17 18:00 - Home Medications Home Medications: Ambulatory Orders NK [No Known Home Medication] 03/10/17 Family Disease History - Family Disease History Family History: Unable to Obtain Review of Systems - Review of Systems HENT: reports: Epistaxis Gastrointestinal: denies: Abdominal Pain Physical Exam-GI Vital Signs: Vital Signs Temperature 98.8 F 03/11/17 09:59 Pulse Rate 133 H 03/11/17 13:17 Respiratory Rate 03/11/17 10:15 Blood Pressure 162/92 03/11/17 13:17 O2 Sat by Pulse Oximetry (%) 98 03/11/17 06:38 Constitutional: Yes: Calm Eyes: No: Sclera Icterus Cardiovascular: Yes: Tachycardia. No: Murmur Respiratory: Yes: Diminished (at bases with poot inspiratory effort) Gastrointestinal Inspection: No: Distention ...Auscultate: Yes: Normoactive Bowel Sounds ...Palpate: Yes: Hepatomegaly. No: Splenomegaly ...Percussion: No: Fluid Wave, Tympanitic Edema: No (No LE edema) Neurological: Yes: Confusion (and somnolent at times), Tremors. No: [employer] Labs: CBC, BMP 03/11/17 12:15 03/11/17 09:00 INR, PTT INR 1.14 (0.82-1.09) 03/11/17 12:15 Imaging - Results Ultrasound: Report Reviewed (fatty liver) Problem List - Problems (1) Withdrawal symptoms, alcohol Assessment/Plan: Abnormal liver chemistries likely reflecting acute alcohol use, rhabdomyolysis and a component of chronic liver disease cannot be excluded. Even at 26 years of age if he has been drinking long enough, underlying cirrhosis is a possibility. Suspect that his coughing up blood relfected ingested blood from his epistaxis. Would continue to monitor. If nose bleed is controlled and waylon hemetemesis noted, would start octreotide 50cg bolus followed by 50mcg/hr infusion, transfer to ICU setting. Ok with PPI for now. No need for infusion at this time. Discussed with Dr. Levy: Mr. Barnhart will be transferred to a monitored setting Monitor electrolytes Monitor mental status: High risk to lapse into DT's Eval of rhabdo / evated troponins Thiamine/Folate supplementation along with MVT / IV hydration. Monitor lytes Aspiration precautions. Keep HOB elevated 35 degrees at all times When acute issues are resolved, given h/o ? rectal bleeding, EGD / colonoscopy could be undertaken. Low MCV with normal RBC. ? Thalassemia. Check iron studies Acute Hepatitis A and B studies penidng. hep C Ab pending. Check Hep A IgG and Hepatitis B surface antibody. if not immunized should be offered vaccination when acute issues are resolved NPO ENT eval Dr. Santoyo resumes coverage 03/13 Code(s): F10.239 - ALCOHOL DEPENDENCE WITH WITHDRAWAL, UNSPECIFIED Qualifiers: Complication of substance-induced condition: uncomplicated Qualified Code(s ): F10.230 - Alcohol dependence with withdrawal, uncomplicated
[2017-03-11] MEDS ORDERED: hydrALAZINE HCL 25 MG TABLET (FP) PO ONE (15:00)
[2017-03-11] MEDS: POTASSIUM CHLORIDE 10 MEQ in SODIUM CHLORIDE 100 ML IVPB SCH ×2 (16:27→18:35)
--- NOTE | 2017-03-11 16:27 | EKG ---
Test Reason : Blood Pressure : / mmHG Vent. Rate : 123 BPM Atrial Rate : 123 BPM P-R Int : 138 ms QRS Dur : 104 ms QT Int : 338 ms P-R-T Axes : 036 066 014 degrees QTc Int : 483 ms SINUS TACHYCARDIA INCOMPLETE RIGHT BUNDLE BRANCH BLOCK CANNOT RULE OUT INFERIOR INFARCT , AGE UNDETERMINED ABNORMAL ECG WHEN COMPARED WITH ECG OF 10-MAR-2017 18:10, NO SIGNIFICANT CHANGE WAS FOUND Confirmed by JUAN COOLEY MD ([id number]) on 03/11/2017 4:27:08 PM Referred By: Jayant GREGORIO Confirmed By:JUAN COOLEY MD
[2017-03-11 16:38] LABS: URINE APPEARANCE CLEAR; URINE BILIRUBIN NEGATIVE (NEGATIVE); URINE BLOOD 2+ (NEGATIVE); URINE COLOR AMBER; URINE GLUCOSE (UA) NEGATIVE (NEGATIVE); URINE KETONE 2+ (NEGATIVE); URINE LEUK ESTERASE NEGATIVE (NEGATIVE); URINE NITRITE NEGATIVE (NEGATIVE)
[2017-03-11 16:50] LABS: URINE PROTEIN 3+ (NEGATIVE)
[2017-03-11 16:54] LABS: URINE HYALINE CAST 1 /lpf; URINE MUCUS RARE
--- NOTE | 2017-03-11 16:57 | EKG ---
Test Reason : Blood Pressure : / mmHG Vent. Rate : 121 BPM Atrial Rate : 121 BPM P-R Int : 138 ms QRS Dur : 106 ms QT Int : 344 ms P-R-T Axes : 025 036 011 degrees QTc Int : 488 ms SINUS TACHYCARDIA INCOMPLETE RIGHT BUNDLE BRANCH BLOCK BORDERLINE ECG NO PREVIOUS ECGS AVAILABLE Confirmed by JUAN COOLEY MD ([id number]) on 03/11/2017 4:57:38 PM Referred By: Confirmed By:JUAN COOLEY MD
[2017-03-11 19:26] LABS: HEMATOCRIT 32.6 % (35.4-49); HEMOGLOBIN 10.5 GM/dL (11.7-16.9); MCHC 32.2 g/dl (32.0-35.9); MEAN CELL VOLUME 77.7 fl (80-96); MEAN PLT VOLUME 7.8 fl (7.5-11.1); PLATELET COUNT 68 K/MM3 (134-434); RDW 21.2 % (11.9-15.9); WHITE BLOOD COUNT 5.4 K/mm3 (4.0-10.0)
[2017-03-11] MEDS ORDERED: SODIUM CHLORIDE NASAL SPRAY 44 ML BOTTLE NS PRN (19:47)
[2017-03-11] MEDS: PANTOPRAZOLE SODIUM 40 MG VIAL IVPUSH SCH (21:50)
[2017-03-12] MEDS: LORazepam 2 MG/ML SDV VIAL IVPUSH PRN (04:06)
[2017-03-12 06:36] LABS: SERUM IRON SATURATION 88 % (15-55); TOTAL IRON BINDING CAPACITY 281 ug/dL (250-450); UIBC 35 ug/dL (111-343)
[2017-03-12 07:57] LABS: ALBUMIN 3.3 g/dl (3.4-5.0); ALK PHOS 122 U/L (45-117); ANION GAP 17 (8-16); BILIRUBIN,TOTAL 3.3 mg/dL (0.2-1.0); BLOOD UREA NITROGEN 7 mg/dL (7-18); CHLORIDE 99 mmol/L (98-107); CO2 19 mmol/L (21-32); CREATININE 0.9 mg/dL (0.7-1.3); GLUCOSE,RANDOM 68 mg/dL (74-106); POTASSIUM 3.7 mmol/L (3.5-5.1); SGPT/ALT 168 U/L (12-78); SODIUM 135 mmol/L (136-145); TOT PROT 7.9 g/dl (6.4-8.2)
[2017-03-12 08:17] LABS: SGOT/AST 458 U/L (15-37)
--- NOTE | 2017-03-12 10:13 | PN ---
Progress Note (short form) - Note Progress Note: Chief Complaint: Events noted, notes reviewed, patient is extremely lethargic and not arousable, in no distress History of Present Illness: Seen and examined on telemetry. Full consult dictated history obtained for the chart Medications: Current Medications Folic Acid (Folic Acid -) 1 mg PO DAILY [facility] Last Admin: 03/11/17 11:25 Dose: 1 mg Sodium Chloride (Normal Saline -) 1,000 mls @ 75 mls/hr IV ASDIR [facility] Last Admin: 03/11/17 10:59 Dose: Not Given Lorazepam (Ativan Injection -) 2 mg IVPUSH Q4H PRN PRN Reason: ANXIETY Last Admin: 03/12/17 04:06 Dose: 2 mg Lorazepam (Ativan -) 2 mg PO Q4H [facility] Multivitamins/Minerals/Vitamin C (Tab-A-Vit -) 1 tab PO DAILY [facility] Last Admin: 03/11/17 10:59 Dose: 1 tab Ondansetron HCl (Zofran Injection) 4 mg IVPUSH Q4H PRN PRN Reason: NAUSEA AND/OR VOMITING Pantoprazole Sodium (Protonix Iv) 40 mg IVPUSH BID [facility] Last Admin: 03/11/17 21:50 Dose: 40 mg Sodium Chloride (Pratt Lamar Nasal Lamar -) 2 spray NS TID PRN PRN Reason: NASAL CONGESTION Last Admin: 03/12/17 00:10 Dose: 2 sprays Thiamine HCl (Vitamin B1 -) 100 mg PO DAILY [facility] Last Admin: 03/11/17 10:59 Dose: 100 mg Review of Systems Unable to obtain Vital Signs: Last Vital Signs Temp Pulse Resp BP Pulse Ox 97.8 F 129 H 19 141/92 98 03/12/17 06:06 03/12/17 06:06 03/12/17 06:06 03/12/17 06:06 03/11/17 06:38 Intake & Output 03/09/17 03/10/17 03/11/17 03/12/17 23:59 23:59 23:59 23:59 Intake Total 2050 500 Output Total 970 Balance 1080 500 Weight 180 lb 180 lb Constitutional: No Distress, Lethargy Neck: Supple Negative JVD Respiratory: Clear to A&P Bilaterally Cardiovascular: S1 S2 Regular Rate Rhythm Tachycardia Gastrointestinal: Soft Benign Normal Bowel Sounds Ext: Negative Edema Labs: CBC, BMP 03/11/17 18:50 03/12/17 05:05 Hepatic Panel Total Bilirubin 3.3 mg/dL (0.2-1.0) H D 03/12/17 05:05 AST 458 U/L (15-37) H D 03/12/17 05:05 ALT 168 U/L (12-78) H D 03/12/17 05:05 Alkaline Phosphatase 122 U/L (45-117) H 03/12/17 05:05 Albumin 3.3 g/dl (3.4-5.0) L 03/12/17 05:05 Troponin, BNP 03/11/17 03/11/17 09:00 15:20 Troponin I 0.08 H 0.08 H Assessment/Plan ASSESSMENT: 1. Acute alcohol intoxication 2. Abnormal LFT's, acute alcoholic hepatitis 3. History of chest pain syndrome (reported), evidence of demand ischemia in context of the above noted presentation 4. Hematemisis (reported) 5. Sinus tachycardia, reactionary 6. Anemia and thrombocytopenia, possible chronic liver disease/cirrhosis PLAN: 1. No specific therapy initiation is recommended for the above noted reactionary sinus tachycardia, at this point 2. Avoid ASA at this point considering the above noted thrombocytopenia 3. Echocardiography to evaluate LV size and function 4. Detox as per the primary team 5. Evaluation of chronic liver disease as per the primary team Thank you for the consult Susi Fischer M.D.
[2017-03-12] MEDS: FOLIC ACID 1 MG TABLET (FP) PO SCH (10:50)
[2017-03-12] MEDS: SODIUM CHLORIDE 1,000 ML IV SCH ×2 (10:51→14:30)
[2017-03-12] MEDS: MULTIVITAMINS (DAILY MVI) TABLET (FP) PO SCH (10:51)
[2017-03-12] MEDS: PANTOPRAZOLE SODIUM 40 MG VIAL IVPUSH SCH ×2 (10:51→21:32)
[2017-03-12] MEDS: THIAMINE HCL 100 MG TABLET (FP) PO SCH (10:51)
--- NOTE | 2017-03-12 11:59 | CONS ---
DATE OF CONSULTATION: 03/12/2017 REQUESTED BY: Hospitalist. CHIEF COMPLAINT: Evaluation of sinus tachycardia, elevated troponin I level. History was obtained from the chart, since patient is lethargic and not arousable, had received Ativan therapy earlier today. A 26-year-old male of descent, who was admitted to [facility] after being transferred from [facility], where he was hospitalized for intoxication. Upon evaluation at [facility] Emergency Room, patient was noted to have evidence of sinus tachycardia with elevated troponin I level. Patient apparently had reported alcohol consumption, in addition cocaine abuse, and subsequently he had reported chest discomfort, nature of which is unknown. Patient, in addition, reported hematemesis. Upon evaluation, patient was noted to have, as noted above, persistent sinus tachycardia, elevated troponin I level. As noted above, patient currently is lethargic, not arousable. PAST MEDICAL HISTORY: Unknown. PAST SURGICAL HISTORY: Unknown. SOCIAL HISTORY: Alcohol abuse, cocaine abuse. FAMILY HISTORY: Unknown. ALLERGIES: None reported. Medical therapy currently includes folic acid 1 mg once a day, IV fluid normal saline at 75 mL per hour, Ativan 2 mg IV push every 4 hours as needed, Ativan 2 mg orally every 4 hours, multivitamin 1 tablet once a day, Zofran 4 mg IV push every 4 hours as needed, Protonix IV 40 mg twice a day, thiamine 100 mg once a day. REVIEW OF SYSTEMS: Not obtainable. PHYSICAL EXAMINATION: Vital Signs: Blood pressure is 141/92 mmHg. Pulse rate is 129 beats per minute. Temperature 97.8. Head and Neck: Pupils are sluggish but reactive to light and accommodation. External ocular muscles cannot be evaluated. Anicteric sclerae. Negative JVD. No bruit appreciated. Chest: Clear to auscultation and percussion. Cardiovascular: S1, S2 regular, tachycardic. Abdomen: Soft, benign. Normoactive bowel sound. Extremities: Negative edema. Intact distal pulses. No calf tenderness. CBC revealed a white cell count 5.4, hemoglobin 10.5, platelet count 68, basic metabolic profile revealed sodium 135, potassium 3.7, BUN 7, creatinine 0.9, glucose 68. LFT was noted. Troponin I level was noted. EKG revealed sinus tachycardia with right-sided conduction delay, and ST-segment abnormality. No clear indication for an inferior infarct. Liver ultrasound report was noted. No evidence of cholecystectomy, acute cholecystitis or biliary ductal dilatation, hepatomegaly. ASSESSMENT: 1. Acute alcohol intoxication. 2. Abnormal liver function testing, acute alcoholic hepatitis. 3. History of chest pain syndrome reported. Evidence of demand ischemia in context of the above-noted presentation. 4. Hematemesis reported. 5. Sinus tachycardia, reactionary related to above. 6. Anemia, thrombocytopenia, possible chronic liver disease/cirrhosis. RECOMMENDATION: 1. No specific therapy initiation is recommended for the above-noted reactionary sinus tachycardia at this point. 2. Avoidance of aspirin therapy at this point, considering the above-noted thrombocytopenia and history of hematemesis. 3. Echocardiography for evaluation of left ventricular size and function. 4. Detox as per the primary team. 5. Evaluation of chronic liver disease as per the primary team. Thank you for the kind referral. SAM FITZPATRICK M.D. [id number]
[2017-03-12] MEDS: LORazepam 1 MG TABLET PO SCH ×3 (15:23→22:31)
--- NOTE | 2017-03-12 15:31 | PN ---
Progress Note (short form) - Note Progress Note: Subjective: no fever or chills. feels better . no pain. Objective: Vital Signs: Last Vital Signs Temp Pulse Resp BP Pulse Ox 98.4 F 118 H 19 136/75 95 03/12/17 14:00 03/12/17 14:00 03/12/17 14:00 03/12/17 14:00 03/12/17 09:00 Laboratory Results - last 24 hr 03/11/17 03/11/17 03/11/17 09:00 12:15 13:25 WBC RBC Hgb Hct MCV MCH MCHC RDW Plt Count MPV Sodium Potassium Chloride Carbon Dioxide Anion Gap BUN Creatinine Creat Clearance w eGFR Random Glucose Calcium Iron 246 H TIBC 281 Iron Saturation 88 H Total Bilirubin AST ALT Alkaline Phosphatase Troponin I Total Protein Albumin Urine Color [place] Urine Appearance Clear Urine pH 6.0 Ur Specific [place] 1.017 Urine Protein 3+ H Urine Glucose (UA) Negative Urine Ketones 2+ H Urine Blood 2+ H Urine Nitrite Negative Urine Bilirubin Negative Urine Urobilinogen 2.0 Ur Leukocyte Esterase Negative Urine WBC (Auto) <1 Urine RBC (Auto) 2 Hyaline Casts 1 Urine Mucus Rare Hepatitis A IgM Ab Negative Hep Bs Antigen Negative Hep B Core IgM Ab Negative Hepatitis C Antibody <0.1 Blood Type Antibody Screen 03/11/17 03/11/17 03/11/17 15:20 16:48 18:50 WBC 5.4 RBC 4.20 Hgb 10.5 L Hct 32.6 L MCV 77.7 L MCH 25.0 L MCHC 32.2 RDW 21.2 H Plt Count 68 L MPV 7.8 Sodium Potassium Chloride Carbon Dioxide Anion Gap BUN Creatinine Creat Clearance w eGFR Random Glucose Calcium Iron TIBC Iron Saturation Total Bilirubin AST ALT Alkaline Phosphatase Troponin I 0.08 H Total Protein Albumin Urine Color Urine Appearance Urine pH Ur Specific [place] Urine Protein Urine Glucose (UA) Urine Ketones Urine Blood Urine Nitrite Urine Bilirubin Urine Urobilinogen Ur Leukocyte Esterase Urine WBC (Auto) Urine RBC (Auto) Hyaline Casts Urine Mucus Hepatitis A IgM Ab Hep Bs Antigen Hep B Core IgM Ab Hepatitis C Antibody Blood Type O POSITIVE Antibody Screen Negative 03/12/17 05:05 WBC RBC Hgb Hct MCV MCH MCHC RDW Plt Count MPV Sodium 135 L Potassium 3.7 Chloride 99 Carbon Dioxide 19 L Anion Gap 17 H BUN 7 Creatinine 0.9 D Creat Clearance w eGFR > 60 Random Glucose 68 L Calcium 8.0 L Iron TIBC Iron Saturation Total Bilirubin 3.3 H D AST 458 H D ALT 168 H D Alkaline Phosphatase 122 H Troponin I Total Protein 7.9 Albumin 3.3 L Urine Color Urine Appearance Urine pH Ur Specific [place] Urine Protein Urine Glucose (UA) Urine Ketones Urine Blood Urine Nitrite Urine Bilirubin Urine Urobilinogen Ur Leukocyte Esterase Urine WBC (Auto) Urine RBC (Auto) Hyaline Casts Urine Mucus Hepatitis A IgM Ab Hep Bs Antigen Hep B Core IgM Ab Hepatitis C Antibody Blood Type Antibody Screen Physical Exam: NAD, AAox3 HEENT: EOMI, minimal deviation of L eye to R. no jaundice , no facial droop. MMM. no JVD CV: RRR, no MRG lungs : CTAB Ext: no edema , no tremors today. MS : TTP in L chest wall . Abd: soft, obese, TTP in epigastric area, , no rebound tenderness or guarding, liver is palpated and percussed 2 cm below medial costal margin. ASSESSMENT AND PLAN: 26 y/o man with no known PMH and which alcohol, cocaine and marijuana use , who presented due to CP . he was found to have transaminitis and upper GI bleed 1- CP : MS in etiology . rib xray with healed L 10th rib fx stable trop . no ischemic changes tahcycardia is from alcohol withdrawal, will treat WD 2- Alcohol withdrawal: - ativan po standing and PRN IV - Thiamine and folate . 3- Possible hematemesis : or due to epistaxis being coughed up . - cont PPI. - stable HB - iron studies do not show iron def . - check Hb electropheresis for microcytic anemia - check OB in stool - will probably need EGD 4- Transaminitis: direct alcoholic toxicity or alcoholic hepatitis ( discriminant function 7 ) , LFTS cont to increase - monitor - avoid hepatotoxics - viral hepatitis panel pending 5- OCASIO :resolved ,Neg head CT 6- Possible cirrhosis : - will need further w/u and Bx - GI input 7- SCDs . Visit type - Emergency Visit Emergency Visit: Yes ED Registration Date: 03/11/17 Care time: The patient presented to the Emergency Department on the above date and was hospitalized for further evaluation of their emergent condition. - New Patient This patient is new to me today: No - Critical Care Critical Care patient: No
--- NOTE | 2017-03-12 16:37 | PN ---
GI Progress Note Subjective: No acute events No epistaxis No vomiting blood or melena He is thristy - Objective Vital Signs: Vital Signs Temperature 98.4 F 03/12/17 14:00 Pulse Rate 118 H 03/12/17 14:00 Respiratory Rate 19 03/12/17 14:00 Blood Pressure 136/75 03/12/17 14:00 O2 Sat by Pulse Oximetry (%) 95 03/12/17 09:00 Constitutional: Calm Eyes: No: Sclera Icterus Cardiovascular: Yes: Tachycardia Respiratory: Yes: Diminished (at bases b/l, poor insp effort) Gastrointestinal Inspection: No: Distention ...Auscultate: Yes: Normoactive Bowel Sounds ...Palpate: No: Tenderness Edema: No (No LE edema) Neurological: Yes: Alert, Oriented Labs: CBC, BMP 03/11/17 18:50 03/12/17 05:05 INR, PTT INR 1.14 (0.82-1.09) 03/11/17 12:15 Laboratory Tests 03/10/17 03/11/17 18:15 09:00 Alcohol, Quantitative 408.9 H* Hepatitis A IgM Ab Negative Hep Bs Antigen Negative Hep B Core IgM Ab Negative Hepatitis C Antibody <0.1 Problem List - Problems (1) Withdrawal symptoms, alcohol Assessment/Plan: Possible component of alc hep Detox protocol per primary team folate/thiamine Monitor liver chemistries If Bili/ALP rising, MRCP to further evaluate biliary tract however non dilated ducts on current imaging Monitor mental status Advised complete alcohol cessation Dr. Santoyo resumes care 03/13 Code(s): F10.239 - ALCOHOL DEPENDENCE WITH WITHDRAWAL, UNSPECIFIED Qualifiers: Complication of substance-induced condition: uncomplicated Qualified Code(s ): F10.230 - Alcohol dependence with withdrawal, uncomplicated
[2017-03-13] MEDS: LORazepam 1 MG TABLET PO SCH ×6 (02:00→22:33)
[2017-03-13 08:26] LABS: EOS % 2.9 % (0-4.5); HEMATOCRIT 32.3 % (35.4-49); HEMOGLOBIN 10.2 GM/dL (11.7-16.9); LYMPH % 12.7 % (8-40); MCH 24.6 pg (25.7-33.7); MCHC 31.4 g/dl (32.0-35.9); MEAN CELL VOLUME 78.3 fl (80-96); MEAN PLT VOLUME 8.5 fl (7.5-11.1); MONO % 11.8 % (3.8-10.2); NEUT % 69.6 % (42.8-82.8); PLATELET COUNT 107 K/MM3 (134-434); RBC 4.13 M/mm3 (4.00-5.60); WHITE BLOOD COUNT 5.2 K/mm3 (4.0-10.0)
--- NOTE | 2017-03-13 08:26 | PN ---
Progress Note (short form) - Note Progress Note: Chief Complaint: Events noted, notes reviewed, awake and alert, denies any chest pain or dyspnea History of Present Illness: Seen and examined on telemetry. Events noted, notes reviewed, awake and alert, denies any chest pain or dyspnea Medications: Current Medications Folic Acid (Folic Acid -) 1 mg PO DAILY [facility] Last Admin: 03/12/17 10:50 Dose: 1 mg Sodium Chloride (Normal Saline -) 1,000 mls @ 75 mls/hr IV ASDIR [facility] Last Admin: 03/12/17 14:30 Dose: 75 mls/hr Lorazepam (Ativan Injection -) 2 mg IVPUSH Q4H PRN PRN Reason: ANXIETY Last Admin: 03/12/17 04:06 Dose: 2 mg Lorazepam (Ativan -) 2 mg PO Q4HPO [facility] Last Admin: 03/13/17 06:31 Dose: 2 mg Multivitamins/Minerals/Vitamin C (Tab-A-Vit -) 1 tab PO DAILY [facility] Last Admin: 03/12/17 10:51 Dose: 1 tab Nystatin (Nystop Powder -) 1 applic TP DAILY [facility] Ondansetron HCl (Zofran Injection) 4 mg IVPUSH Q4H PRN PRN Reason: NAUSEA AND/OR VOMITING Pantoprazole Sodium (Protonix Iv) 40 mg IVPUSH BID [facility] Last Admin: 03/12/17 21:32 Dose: 40 mg Sodium Chloride ([place] Nasal Merlin -) 2 spray NS TID PRN PRN Reason: NASAL CONGESTION Last Admin: 03/12/17 00:10 Dose: 2 sprays Thiamine HCl (Vitamin B1 -) 100 mg PO DAILY [facility] Last Admin: 03/12/17 10:51 Dose: 100 mg Review of Systems Cardiovascular: As noted above Respiratory: denies: denies: Cough or Sputum Production Gastrointestinal: denies: Nausea, vomiting, Constipation, Diarrhea or Abdominal Discomfort Musculoskeletal: No Symptoms Reported Endocrine: No Symptoms Reported Vital Signs: Last Vital Signs Temp Pulse Resp BP Pulse Ox 99 F 104 H 20 149/85 99 03/13/17 06:00 03/13/17 06:00 03/13/17 06:00 03/13/17 06:00 03/12/17 21:00 Intake & Output 03/10/17 03/11/17 03/12/17 03/13/17 23:59 23:59 23:59 23:59 Intake Total 2049 1580 1180 Output Total 970 600 500 Balance 1080 980 680 Weight 180 lb 180 lb Constitutional: No Distress, Lethargy Neck: Supple Negative JVD Respiratory: Clear to A&P Bilaterally Cardiovascular: S1 S2 Regular Rate Rhythm Tachycardia Gastrointestinal: Soft Benign Normal Bowel Sounds Ext: Negative Edema Labs: CBC, BMP 03/13/17 07:15 BMP from this AM pending Assessment/Plan ASSESSMENT: 1. Acute alcohol intoxication 2. Abnormal LFT's, acute alcoholic hepatitis 3. History of chest pain syndrome (reported), evidence of demand ischemia in context of the above noted presentation 4. Hematemisis (reported), no recurrence 5. Sinus tachycardia, reactionary 6. Anemia and thrombocytopenia, possible chronic liver disease/cirrhosis PLAN: 1. As outlined no specific therapy initiation is recommended for the above noted reactionary sinus tachycardia, at this point 2. Avoid ASA at this point considering the above noted thrombocytopenia 3. Echocardiography to evaluate LV size and function 4. Detox as per the primary team 5. Evaluation of chronic liver disease as per the primary team Susi Fischer M.D.
[2017-03-13 09:08] LABS: CHLORIDE 96 mmol/L (98-107); POTASSIUM 3.1 mmol/L (3.5-5.1); SODIUM 133 mmol/L (136-145)
[2017-03-13 09:28] LABS: ALK PHOS 127 U/L (45-117); ANION GAP 18 (8-16); BILIRUBIN,DIRECT 2.5 mg/dL (0.0-0.2); BILIRUBIN,TOTAL 3.3 mg/dL (0.2-1.0); BLOOD UREA NITROGEN 6 mg/dL (7-18); CALCIUM 8.3 mg/dL (8.5-10.1); CO2 19 mmol/L (21-32); CREATININE 0.7 mg/dL (0.7-1.3); GLUCOSE,RANDOM 78 mg/dL (74-106); SGPT/ALT 213 U/L (12-78); TOT PROT 7.4 g/dl (6.4-8.2)
[2017-03-13 09:35] LABS: SGOT/AST 505 U/L (15-37)
[2017-03-13] MEDS ORDERED: POTASSIUM CHLORIDE TABS 20 MEQ TABLET.ER (FP) PO ONE (09:50)
[2017-03-13] MEDS: MULTIVITAMINS (DAILY MVI) TABLET (FP) PO SCH (10:09)
[2017-03-13] MEDS: FOLIC ACID 1 MG TABLET (FP) PO SCH (10:09)
[2017-03-13] MEDS: THIAMINE HCL 100 MG TABLET (FP) PO SCH (10:09)
[2017-03-13] MEDS: NYSTATIN POWDER 100,000 UNITS/GM - 15 GM TOPICAL POWDER TP SCH (10:09)
[2017-03-13] MEDS: PANTOPRAZOLE SODIUM 40 MG VIAL IVPUSH SCH ×2 (10:10→22:31)
--- NOTE | 2017-03-13 11:23 | EKG ---
Test Reason : Blood Pressure : / mmHG Vent. Rate : 101 BPM Atrial Rate : 101 BPM P-R Int : 134 ms QRS Dur : 104 ms QT Int : 358 ms P-R-T Axes : 045 064 033 degrees QTc Int : 464 ms SINUS TACHYCARDIA OTHERWISE NORMAL ECG WHEN COMPARED WITH ECG OF 11-MAR-2017 12:25, NO SIGNIFICANT CHANGE WAS FOUND Confirmed by JUAN COOLEY MD ([id number]) on 03/13/2017 11:23:02 AM Referred By: Jayant GREGORIO Confirmed By:JUAN COOLEY MD
[2017-03-13] MEDS: SODIUM CHLORIDE 1,000 ML IV SCH (12:00)
--- NOTE | 2017-03-13 12:51 | PN ---
Progress Note, Physician History of Present Illness: chart reviewed. Reports dyspepsia, no sign of bleeding. No dysphagia, odynophagela, nausea, or vomiting. No melena, hematemesis, or hematochezia. - Current Medication List Current Medications: Active Medications Folic Acid (Folic Acid -) 1 mg PO DAILY [facility] Last Admin: 03/13/17 10:09 Dose: 1 mg Sodium Chloride (Normal Saline -) 1,000 mls @ 75 mls/hr IV ASDIR [facility] Last Admin: 03/12/17 14:30 Dose: 75 mls/hr Lorazepam (Ativan Injection -) 2 mg IVPUSH Q4H PRN PRN Reason: ANXIETY Last Admin: 03/12/17 04:06 Dose: 2 mg Lorazepam (Ativan -) 2 mg PO Q4HPO [facility] Last Admin: 03/13/17 10:34 Dose: 2 mg Multivitamins/Minerals/Vitamin C (Tab-A-Vit -) 1 tab PO DAILY [facility] Last Admin: 03/13/17 10:09 Dose: 1 tab Nystatin (Nystop Powder -) 1 applic TP DAILY [facility] Last Admin: 03/13/17 10:09 Dose: 1 applic Ondansetron HCl (Zofran Injection) 4 mg IVPUSH Q4H PRN PRN Reason: NAUSEA AND/OR VOMITING Pantoprazole Sodium (Protonix Iv) 40 mg IVPUSH BID [facility] Last Admin: 03/13/17 10:10 Dose: 40 mg Sodium Chloride ([place] Nasal [place] -) 2 spray NS TID PRN PRN Reason: NASAL CONGESTION Last Admin: 03/12/17 00:10 Dose: 2 sprays Thiamine HCl (Vitamin B1 -) 100 mg PO DAILY [facility] Last Admin: 03/13/17 10:09 Dose: 100 mg - Objective Vital Signs: Vital Signs Temperature 99.5 F 03/13/17 10:00 Pulse Rate 113 H 03/13/17 10:00 Respiratory Rate 24 03/13/17 10:00 Blood Pressure 151/96 03/13/17 10:00 O2 Sat by Pulse Oximetry (%) 99 03/12/17 21:00 Gastrointestinal: Yes: Soft. No: Tenderness Neurological: Yes: Alert, Tremors Labs: CBC, BMP 03/13/17 07:15 03/13/17 07:15 INR, PTT INR 1.14 (0.82-1.09) 03/11/17 12:15 Laboratory Results - last 24 hr 03/11/17 03/13/17 03/13/17 09:00 07:15 07:15 WBC 5.2 RBC 4.13 Hgb 10.2 L Hct 32.3 L MCV 78.3 L MCH 24.6 L MCHC 31.4 L RDW 21.0 H Plt Count 107 L D MPV 8.5 Neutrophils % 69.6 Lymphocytes % 12.7 D Monocytes % 11.8 H Eosinophils % 2.9 D Basophils % 3.0 H Sodium 133 L Potassium 3.1 L Chloride 96 L Carbon Dioxide 19 L Anion Gap 18 H BUN 6 L Creatinine 0.7 D Random Glucose 78 Calcium 8.3 L Total Bilirubin 3.3 H Direct Bilirubin 2.5 H AST 505 H ALT 213 H D Alkaline Phosphatase 127 H Total Protein 7.4 Albumin 3.0 L Hepatitis A IgM Ab Negative Hep Bs Antigen Negative Hep B Core IgM Ab Negative Hepatitis C Antibody <0.1 Problem List - Problems (1) Hepatitis Code(s): K75.9 - INFLAMMATORY LIVER DISEASE, UNSPECIFIED (2) Alcohol abuse Code(s): F10.10 - ALCOHOL ABUSE, UNCOMPLICATED (3) Cocaine abuse Code(s): F14.10 - COCAINE ABUSE, UNCOMPLICATED (4) Hematemesis Code(s): K92.0 - HEMATEMESIS (5) Withdrawal symptoms, alcohol Code(s): F10.239 - ALCOHOL DEPENDENCE WITH WITHDRAWAL, UNSPECIFIED Qualifiers: Complication of substance-induced condition: uncomplicated Qualified Code(s ): F10.230 - Alcohol dependence with withdrawal, uncomplicated Assessment/Plan Possible liver cirrhosis hx of hematemesis Worsening liver chemistry no active bleeding Mild anemia, thrombocytopenia daily liver chemistry, bili, alp, PT, INR, CBC Close monitoring for DT/withdrawal EGD
--- NOTE | 2017-03-13 18:34 | PN ---
Teaching Attending Note Name of Resident: Gerald Lucero ATTENDING PHYSICIAN STATEMENT I saw and evaluated the patient. I reviewed the resident's note and discussed the case with the resident. I agree with the resident's findings and plan as documented. SUBJECTIVE: cont to have minimal nausea . no abd pain , has L sided cp OBJECTIVE: NAD, AAox3 CV: RRR, no MRG lungs: CTAB Ext: no edema, no tremors today. MS : TTP in L chest wall . Abd: soft, obese, TTP in epigastric area, , no rebound tenderness or guarding, liver is palpated and percussed 2 cm below medial costal margin. ASSESSMENT AND PLAN: 26 y/o man with no known PMH and which alcohol, cocaine and marijuana use , who presented due to CP . he was found to have transaminitis and upper GI bleed 1- CP: MS in etiology. 2- Alcohol withdrawal: improved - ativan po standing and PRN IV - Thiamine and folate . 3- Possible hematemesis: - cont PPI. - stable HB - iron studies do not show iron def . - Hb electropheresis for microcytic anemia pending - d/w Dr. Santoyo. for EGD this admission 4- Transaminitis: direct alcoholic toxicity or alcoholic hepatitis . LFTS cont to increase - check PT for am - avoid hepatotoxics - viral hepatitis indicates no previous vaccination or infection with Hep B . neg hep c serology and neg for acute Hep A 5- OCASIO :resolved ,Neg head CT 6- Possible cirrhosis : - will need further w/u and Bx - EGD to r/o varices 7- SCDs .
--- NOTE | 2017-03-13 19:03 | PN ---
Physical Exam: SUBJECTIVE: Pt stated he has pain located below his neck and left chest, palpable, reproducible, worse with deep breath. Also c/o pain at IV site. OBJECTIVE: Vital Signs Period Temp Pulse Resp BP Sys/Murphy Pulse Ox Last 24 Hr 98.6 F-99.5 F 103-135 19-24 135-151/74-96 96-99 General: AAO x 3. able to speak full sentences, Eyes: PERRLA, no jaundice ENT: Oropharynx clear with no lesions/erythema. Neck: Supple with no LAD or masses. Cardiovascular: Tachycardic, Regular rhythm, S1 and S2 normal, no m/g/r, palpable pain in L chest wall Lungs: CTAB Abdomen: Normoactive bowel sounds. Non-distended, No tenderness even upon deep palpation, no guarding/rebound Extremeties: No peripheral edema CBCD WBC 5.2 K/mm3 (4.0-10.0) 03/13/17 07:15 RBC 4.13 M/mm3 (4.00-5.60) 03/13/17 07:15 Hgb 10.2 GM/dL (11.7-16.9) L 03/13/17 07:15 Hct 32.3 % (35.4-49) L 03/13/17 07:15 MCV 78.3 fl (80-96) L 03/13/17 07:15 MCHC 31.4 g/dl (32.0-35.9) L 03/13/17 07:15 RDW 21.0 % (11.9-15.9) H 03/13/17 07:15 Plt Count 107 K/MM3 (134-434) L D 03/13/17 07:15 MPV 8.5 fl (7.5-11.1) 03/13/17 07:15 CMP Sodium 133 mmol/L (136-145) L 03/13/17 07:15 Potassium 3.1 mmol/L (3.5-5.1) L 03/13/17 07:15 Chloride 96 mmol/L (98-107) L 03/13/17 07:15 Carbon Dioxide 19 mmol/L (21-32) L 03/13/17 07:15 Anion Gap 18 (8-16) H 03/13/17 07:15 BUN 6 mg/dL (7-18) L 03/13/17 07:15 Creatinine 0.7 mg/dL (0.7-1.3) D 03/13/17 07:15 Creat Clearance w eGFR > 60 (>60) 03/12/17 05:05 Calcium 8.3 mg/dL (8.5-10.1) L 03/13/17 07:15 Total Bilirubin 3.3 mg/dL (0.2-1.0) H 03/13/17 07:15 AST 505 U/L (15-37) H 03/13/17 07:15 ALT 213 U/L (12-78) H D 03/13/17 07:15 Alkaline Phosphatase 127 U/L (45-117) H 03/13/17 07:15 Total Protein 7.4 g/dl (6.4-8.2) 03/13/17 07:15 Albumin 3.0 g/dl (3.4-5.0) L 03/13/17 07:15 Active Medications Generic Name Dose Route Start Last Admin Trade Name Steven PRN Reason Stop Dose Admin Folic Acid 1 mg 03/11/17 11:00 03/13/17 10:09 Folic Acid - PO 1 mg DAILY ELIEZER Administration Sodium Chloride 1,000 mls @ 75 mls/hr 03/11/17 10:30 03/13/17 12:00 Normal Saline - IV 75 mls/hr ASDIR ELIEZER Administration Lorazepam 2 mg 03/11/17 04:52 03/12/17 04:06 Ativan Injection - IVPUSH 2 mg Q4H PRN Administration ANXIETY Lorazepam 2 mg 03/11/17 16:45 03/13/17 18:22 Ativan - PO 2 mg Q4HPO ELIEZER Administration Multivitamins/Minerals/Vitamin C 1 tab 03/11/17 10:00 03/13/17 10:09 Tab-A-Vit - PO 1 tab DAILY ELIEZER Administration Nystatin 1 applic 03/13/17 10:00 03/13/17 10:09 Nystop Powder - TP 1 applic DAILY ELIEZER Administration Ondansetron HCl 4 mg 03/11/17 04:52 Zofran Injection IVPUSH Q4H PRN NAUSEA AND/OR VOMITING Pantoprazole Sodium 40 mg 03/11/17 22:00 03/13/17 10:10 Protonix Iv IVPUSH 40 mg BID ELIEZER Administration Sodium Chloride 2 spray 03/11/17 19:47 03/12/17 00:10 [place] Nasal [place] - NS 2 sprays TID PRN Administration NASAL CONGESTION Thiamine HCl 100 mg 03/11/17 10:00 03/13/17 10:09 Vitamin B1 - PO 100 mg DAILY ELIEZER Administration ASSESSMENT/PLAN: 26 yo M h/o alcohol abuse admitted to [facility] for chest pain and alcohol withdrawal. Chest pain - Likely musculoskeletal Alcohol abuse - Gait unsteady and fine tremor observed - Cont. ativan standing and PRN - PO thiamine and folic acid Transminitis - Likely 2/2 liver cirrhosis from alcohol use - Cont. to monitor liver chemistries - f/u hep panel Anemia and thrombocytopenia - Likely 2/2 liver injury - Cont to trend Hematemesis - Resolved - agata rick vs. variceal bleed - Cont. protonix - EGD FEN - NS 75cc/hr - Hyponatremia, cont. to monitor - Clear liquids Prophylaxis - DVT: SCDs Visit type - Emergency Visit Emergency Visit: No - New Patient This patient is new to me today: Yes Date on this admission: 03/13/17 - Critical Care Critical Care patient: No
[2017-03-14 00:08] LABS: HEP A AB, IGM Negative (Negative)
[2017-03-14] MEDS: LORazepam 1 MG TABLET PO SCH ×5 (01:30→18:12)
--- NOTE | 2017-03-14 03:21 | PN ---
Physical Exam: SUBJECTIVE: Patient seen and examined at bed side, still sinus tachy, still complain of the left side chest pain. denies any N/V/D/C , reports some RUQ discomfort. still feeling weak.report nose bleeding.fell over night OBJECTIVE: Vital Signs Period Temp Pulse Resp BP Sys/Murphy Pulse Ox Last 24 Hr 98.5 F-99.5 F 104-135 20-24 125-151/57-96 96-96 GENERAL: The patient is awake, alert, and fully oriented, in no acute distress. HEAD: Normal with no signs of trauma. EYES: sclera anicteric, conjunctiva clear. ENT: moist mucous membranes. LUNGS: Breath sounds equal, clear to auscultation bilaterally, no wheezes, no crackles, no accessory muscle use. HEART: Sinus tachy, S1, S2 without murmur, rub or gallop. ABDOMEN: Soft, RUQ tenderness, nondistended, normoactive bowel sounds, no guarding, no rebound, no hepatosplenomegaly, no masses. EXTREMITIES: 2+ pulses, warm, well-perfused, no edema. NEUROLOGICAL: no focal deficit . Normal speech, gait not observed. PSYCH: Normal mood, normal affect. SKIN: Warm, dry, no rashes or lesions noted Laboratory Results - last 24 hr 03/12/17 03/12/17 03/13/17 05:05 05:05 07:15 WBC 5.2 RBC 4.13 Hgb 10.2 L Hct 32.3 L MCV 78.3 L MCH 24.6 L MCHC 31.4 L RDW 21.0 H Plt Count 107 L D MPV 8.5 Neutrophils % 69.6 Lymphocytes % 12.7 D Monocytes % 11.8 H Eosinophils % 2.9 D Basophils % 3.0 H Sodium Potassium Chloride Carbon Dioxide Anion Gap BUN Creatinine Random Glucose Calcium Total Bilirubin Direct Bilirubin AST ALT Alkaline Phosphatase Total Protein Albumin Hep A IgM Ab Confirm Negative Hepatitis A Ab Total Positive H Hep Bs Antibody, Quant <3.1 L 03/13/17 07:15 WBC RBC Hgb Hct MCV MCH MCHC RDW Plt Count MPV Neutrophils % Lymphocytes % Monocytes % Eosinophils % Basophils % Sodium 133 L Potassium 3.1 L Chloride 96 L Carbon Dioxide 19 L Anion Gap 18 H BUN 6 L Creatinine 0.7 D Random Glucose 78 Calcium 8.3 L Total Bilirubin 3.3 H Direct Bilirubin 2.5 H AST 505 H ALT 213 H D Alkaline Phosphatase 127 H Total Protein 7.4 Albumin 3.0 L Hep A IgM Ab Confirm Hepatitis A Ab Total Hep Bs Antibody, Quant Active Medications Generic Name Dose Route Start Last Admin Trade Name Freq PRN Reason Stop Dose Admin Folic Acid 1 mg 03/11/17 11:00 03/13/17 10:09 Folic Acid - PO 1 mg DAILY ELIEZER Administration Sodium Chloride 1,000 mls @ 75 mls/hr 03/11/17 10:30 03/13/17 12:00 Normal Saline - IV 75 mls/hr ASDIR ELIEZER Administration Lorazepam 2 mg 03/11/17 04:52 03/12/17 04:06 Ativan Injection - IVPUSH 2 mg Q4H PRN Administration ANXIETY Lorazepam 2 mg 03/11/17 16:45 03/14/17 01:30 Ativan - PO 2 mg Q4HPO ELIEZER Administration Multivitamins/Minerals/Vitamin C 1 tab 03/11/17 10:00 03/13/17 10:09 Tab-A-Vit - PO 1 tab DAILY ELIEZER Administration Nystatin 1 applic 03/13/17 10:00 03/13/17 10:09 Nystop Powder - TP 1 applic DAILY ELIEZER Administration Ondansetron HCl 4 mg 03/11/17 04:52 Zofran Injection IVPUSH Q4H PRN NAUSEA AND/OR VOMITING Pantoprazole Sodium 40 mg 03/11/17 22:00 03/13/17 22:31 Protonix Iv IVPUSH 40 mg BID ELIEZER Administration Sodium Chloride 2 spray 03/11/17 19:47 03/12/17 00:10 [place] Nasal [place] - NS 2 sprays TID PRN Administration NASAL CONGESTION Thiamine HCl 100 mg 03/11/17 10:00 03/13/17 10:09 Vitamin B1 - PO 100 mg DAILY ELIEZER Administration ASSESSMENT/PLAN: 26 y/o man with no known PMH and which alcohol, cocaine and marijuana use , who presented due to CP . he was found to have transaminitis and upper GI bleed Chest pain - Likely musculoskeletal Alcohol abuse - Gait unsteady and fine tremor observed - Cont. ativan standing and PRN (standard reduced to 2 mg Q6hr ) - PO thiamine and folic acid Transminitis - Likely 2/2 liver cirrhosis from alcohol use - Cont. to monitor liver chemistries - f/u hep panel Anemia and thrombocytopenia - Likely 2/2 liver injury - Cont to trend - Avoid ASA Hematemesis - Resolved - agata rick vs. variceal bleed - Cont. protonix - EGD FEN - NS 75cc/hr - Hyponatremia, cont. to monitor - Clear liquids Prophylaxis - DVT: SCDs Visit type - Emergency Visit Emergency Visit: Yes ED Registration Date: 03/11/17 Care time: The patient presented to the Emergency Department on the above date and was hospitalized for further evaluation of their emergent condition. - New Patient This patient is new to me today: Yes Date on this admission: 03/14/17 - Critical Care Critical Care patient: No - Discharge Referral Referred to [facility] Med P.C.: No
[2017-03-14 07:21] LABS: INR 1.11 (0.82-1.09); PROTHROMBIN TIME (PATIENT) 12.5 SEC (9.98-11.88)
[2017-03-14 07:23] LABS: ACTIVATED PTT 33.4 SECONDS (26.9-34.4); HEMATOCRIT 32.1 % (35.4-49); HEMOGLOBIN 10.2 GM/dL (11.7-16.9); MCHC 31.9 g/dl (32.0-35.9); MEAN CELL VOLUME 78.2 fl (80-96); MEAN PLT VOLUME 8.2 fl (7.5-11.1); PLATELET COUNT 128 K/MM3 (134-434); RDW 21.4 % (11.9-15.9); WHITE BLOOD COUNT 4.8 K/mm3 (4.0-10.0)
[2017-03-14 07:40] LABS: ALBUMIN 3.1 g/dl (3.4-5.0); ANION GAP 13 (8-16); BILIRUBIN,DIRECT 2.4 mg/dL (0.0-0.2); BILIRUBIN,TOTAL 3.1 mg/dL (0.2-1.0); BLOOD UREA NITROGEN 3 mg/dL (7-18); CALCIUM 8.3 mg/dL (8.5-10.1); CHLORIDE 98 mmol/L (98-107); CO2 25 mmol/L (21-32); CREATININE 0.6 mg/dL (0.7-1.3); GLUCOSE,RANDOM 96 mg/dL (74-106); POTASSIUM 3.1 mmol/L (3.5-5.1); SGPT/ALT 222 U/L (12-78); SODIUM 136 mmol/L (136-145); TOT PROT 7.4 g/dl (6.4-8.2)
[2017-03-14 07:41] LABS: ALK PHOS 124 U/L (45-117)
[2017-03-14 07:50] LABS: SGOT/AST 433 U/L (15-37)
--- NOTE | 2017-03-14 08:14 | PN ---
Progress Note (short form) - Note Progress Note: Chief Complaint: Events noted, notes reviewed, awake and alert, denies any chest pain or dyspnea, epistaxis noted, sinus tachycardia noted History of Present Illness: Seen and examined on telemetry. Events noted, notes reviewed, awake and alert, denies any chest pain or dyspnea, epistaxis noted, sinus tachycardia noted Echocardiography revealed normal LV and RV systolic function, trace MR and TR Medications: Current Medications Folic Acid (Folic Acid -) 1 mg PO DAILY [facility] Last Admin: 03/13/17 10:09 Dose: 1 mg Sodium Chloride (Normal Saline -) 1,000 mls @ 75 mls/hr IV ASDIR [facility] Last Admin: 03/13/17 12:00 Dose: 75 mls/hr Lorazepam (Ativan Injection -) 2 mg IVPUSH Q4H PRN PRN Reason: ANXIETY Last Admin: 03/12/17 04:06 Dose: 2 mg Lorazepam (Ativan -) 2 mg PO Q4HPO [facility] Last Admin: 03/14/17 06:07 Dose: 2 mg Multivitamins/Minerals/Vitamin C (Tab-A-Vit -) 1 tab PO DAILY [facility] Last Admin: 03/13/17 10:09 Dose: 1 tab Nystatin (Nystop Powder -) 1 applic TP DAILY [facility] Last Admin: 03/13/17 10:09 Dose: 1 applic Ondansetron HCl (Zofran Injection) 4 mg IVPUSH Q4H PRN PRN Reason: NAUSEA AND/OR VOMITING Pantoprazole Sodium (Protonix Iv) 40 mg IVPUSH BID [facility] Last Admin: 03/13/17 22:31 Dose: 40 mg Sodium Chloride ([place] Nasal [place] -) 2 spray NS TID PRN PRN Reason: NASAL CONGESTION Last Admin: 03/12/17 00:10 Dose: 2 sprays Thiamine HCl (Vitamin B1 -) 100 mg PO DAILY [facility] Last Admin: 03/13/17 10:09 Dose: 100 mg Review of Systems Cardiovascular: As noted above Respiratory: denies: denies: Cough or Sputum Production Gastrointestinal: denies: Nausea, vomiting, Constipation, Diarrhea or Abdominal Discomfort Musculoskeletal: No Symptoms Reported Endocrine: No Symptoms Reported Vital Signs: Last Vital Signs Temp Pulse Resp BP Pulse Ox 98.5 F 105 H 20 133/76 96 03/14/17 02:24 03/14/17 06:00 03/14/17 06:00 03/14/17 06:00 03/13/17 20:51 Intake & Output 03/11/17 03/12/17 03/13/17 03/14/17 23:59 23:59 23:59 23:59 Intake Total 2050 1580 1710 900 Output Total 907 082 8166 700 Balance 1080 980 710 200 Weight 180 lb Constitutional: No Distress, Calm Neck: Supple Negative JVD Respiratory: Clear to A&P Bilaterally Cardiovascular: S1 S2 Regular Rate Rhythm Tachycardia Gastrointestinal: Soft Benign Normal Bowel Sounds Ext: Negative Edema Labs: CBC, BMP 03/14/17 06:17 03/14/17 06:17 Assessment/Plan ASSESSMENT: 1. Acute alcohol intoxication 2. Abnormal LFT's, acute alcoholic hepatitis with probable underlying chronic liver disease 3. History of chest pain syndrome (reported), evidence of demand ischemia in context of the above noted presentation 4. Epistaxis 5. Perssitent sinus tachycardia, reactionary no indication for treatment 6. Anemia and thrombocytopenia, possibly related to chronic liver disease/ cirrhosis PLAN: 1. As outlined no specific therapy initiation is recommended for the above noted reactionary sinus tachycardia, at this point 2. Avoid ASA at this point considering the above noted thrombocytopenia/ epistaxis 3. Detox as per the primary team 4. Evaluation of chronic liver disease as per the primary team 5. May be transferred to floor care from the cardiovascular point of view Susi Fischer M.D.
--- NOTE | 2017-03-14 08:50 | PN ---
Progress Note, Physician History of Present Illness: chart reviewed. C/o generalized body aches, No events. No sign of bleeding. No dysphagia, odynophagela, nausea, or vomiting. No melena, hematemesis, or hematochezia. - Current Medication List Current Medications: Active Medications Folic Acid (Folic Acid -) 1 mg PO DAILY [facility] Last Admin: 03/13/17 10:09 Dose: 1 mg Sodium Chloride (Normal Saline -) 1,000 mls @ 75 mls/hr IV ASDIR [facility] Last Admin: 03/13/17 12:00 Dose: 75 mls/hr Lorazepam (Ativan Injection -) 2 mg IVPUSH Q4H PRN PRN Reason: ANXIETY Last Admin: 03/12/17 04:06 Dose: 2 mg Lorazepam (Ativan -) 2 mg PO Q4HPO [facility] Last Admin: 03/14/17 06:07 Dose: 2 mg Multivitamins/Minerals/Vitamin C (Tab-A-Vit -) 1 tab PO DAILY [facility] Last Admin: 03/13/17 10:09 Dose: 1 tab Nystatin (Nystop Powder -) 1 applic TP DAILY [facility] Last Admin: 03/13/17 10:09 Dose: 1 applic Ondansetron HCl (Zofran Injection) 4 mg IVPUSH Q4H PRN PRN Reason: NAUSEA AND/OR VOMITING Pantoprazole Sodium (Protonix Iv) 40 mg IVPUSH BID [facility] Last Admin: 03/13/17 22:31 Dose: 40 mg Sodium Chloride ([place] Nasal [place] -) 2 spray NS TID PRN PRN Reason: NASAL CONGESTION Last Admin: 03/12/17 00:10 Dose: 2 sprays Thiamine HCl (Vitamin B1 -) 100 mg PO DAILY [facility] Last Admin: 03/13/17 10:09 Dose: 100 mg - Objective Vital Signs: Vital Signs Temperature 98.5 F 03/14/17 02:24 Pulse Rate 105 H 03/14/17 06:00 Respiratory Rate 20 03/14/17 06:00 Blood Pressure 133/76 03/14/17 06:00 O2 Sat by Pulse Oximetry (%) 96 03/13/17 20:51 Constitutional: Yes: No Distress Eyes: Yes: Conjunctiva Clear Neurological: Yes: Alert Labs: CBC, BMP 03/14/17 06:17 03/14/17 06:17 INR, PTT INR 1.11 (0.82-1.09) 03/14/17 06:17 Laboratory Results - last 24 hr 03/12/17 03/12/17 03/13/17 05:05 05:05 07:15 WBC RBC Hgb Hct MCV MCH MCHC RDW Plt Count MPV Neutrophils % Lymphocytes % PT with INR INR PTT (Actin FS) Sodium 133 L Potassium 3.1 L Chloride 96 L Carbon Dioxide 19 L Anion Gap 18 H BUN 6 L Creatinine 0.7 D Creat Clearance w eGFR Random Glucose 78 Lactic Acid Calcium 8.3 L Total Bilirubin 3.3 H Direct Bilirubin 2.5 H AST 505 H ALT 213 H D Alkaline Phosphatase 127 H Total Protein 7.4 Albumin 3.0 L Hep A IgM Ab Confirm Negative Hepatitis A Ab Total Positive H Hep Bs Antibody, Quant <3.1 L 03/14/17 03/14/17 03/14/17 06:17 06:17 06:17 WBC 4.8 RBC 4.10 Hgb 10.2 L Hct 32.1 L MCV 78.2 L MCH 25.0 L MCHC 31.9 L RDW 21.4 H Plt Count 128 L MPV 8.2 Neutrophils % No Result Required. Lymphocytes % No Result Required. PT with INR 12.50 H INR 1.11 PTT (Actin FS) 33.4 Sodium 136 Potassium 3.1 L Chloride 98 Carbon Dioxide 25 D Anion Gap 13 BUN 3 L D Creatinine 0.6 L Creat Clearance w eGFR > 60 Random Glucose 96 D Lactic Acid Calcium 8.3 L Total Bilirubin 3.1 H Direct Bilirubin 2.4 H AST 433 H ALT 222 H Alkaline Phosphatase 124 H Total Protein 7.4 Albumin 3.1 L Hep A IgM Ab Confirm Hepatitis A Ab Total Hep Bs Antibody, Quant 03/14/17 07:50 WBC RBC Hgb Hct MCV MCH MCHC RDW Plt Count MPV Neutrophils % Lymphocytes % PT with INR INR PTT (Actin FS) Sodium Potassium Chloride Carbon Dioxide Anion Gap BUN Creatinine Creat Clearance w eGFR Random Glucose Lactic Acid 0.9 Calcium Total Bilirubin Direct Bilirubin AST ALT Alkaline Phosphatase Total Protein Albumin Hep A IgM Ab Confirm Hepatitis A Ab Total Hep Bs Antibody, Quant Problem List - Problems (1) Hepatitis Code(s): K75.9 - INFLAMMATORY LIVER DISEASE, UNSPECIFIED (2) Alcohol abuse Code(s): F10.10 - ALCOHOL ABUSE, UNCOMPLICATED (3) Cocaine abuse Code(s): F14.10 - COCAINE ABUSE, UNCOMPLICATED (4) Hematemesis Code(s): K92.0 - HEMATEMESIS (5) Withdrawal symptoms, alcohol Code(s): F10.239 - ALCOHOL DEPENDENCE WITH WITHDRAWAL, UNSPECIFIED Qualifiers: Complication of substance-induced condition: uncomplicated Qualified Code(s ): F10.230 - Alcohol dependence with withdrawal, uncomplicated Assessment/Plan Close monitoring for DT/withdrawal EGD
[2017-03-14 09:15] LABS: ARTERIAL BLD GAS O2 SATURATION 97.3 % (90-98.9); ARTERIAL BLOOD GAS BASE EXCESS 2.6 meq/l (-2-2); ARTERIAL BLOOD GAS PCO2 35.8 mmHg (35-45); ARTERIAL BLOOD GAS PO2 84.9 mmHg (80-100); ARTERIAL BLOOD GAS pH 7.47 (7.35-7.45)
[2017-03-14] MEDS: MULTIVITAMINS (DAILY MVI) TABLET (FP) PO SCH (09:18)
[2017-03-14] MEDS: THIAMINE HCL 100 MG TABLET (FP) PO SCH (09:18)
[2017-03-14] MEDS: FOLIC ACID 1 MG TABLET (FP) PO SCH (09:18)
[2017-03-14 09:23] LABS: ALLENS TEST POSITIVE
[2017-03-14] MEDS: PANTOPRAZOLE SODIUM 40 MG VIAL IVPUSH SCH ×2 (10:05→22:43)
[2017-03-14 10:15] LABS: ANISOCYTOSIS 2+; PLATELET ESTIMATE DECREASED; TARGET CELLS 3+
[2017-03-14] MEDS: NYSTATIN POWDER 100,000 UNITS/GM - 15 GM TOPICAL POWDER TP SCH (11:01)
[2017-03-14] MEDS ORDERED: POTASSIUM CHLORIDE TABS 20 MEQ TABLET.ER (FP) PO ONE (14:00)
[2017-03-14] MEDS ORDERED: LORazepam 2 MG/ML SDV VIAL IVPUSH PRN (15:08)
[2017-03-14] MEDS ORDERED: HEPARIN NA (PORCINE) 5,000 UNITS/ML 1ML VIAL SQ SCH (15:15)
[2017-03-14] MEDS: SODIUM CHLORIDE 1,000 ML IV SCH (18:12)
--- NOTE | 2017-03-14 19:53 | PN ---
Teaching Attending Note Name of Resident: Erick Lewis ATTENDING PHYSICIAN STATEMENT I saw and evaluated the patient. I reviewed the resident's note and discussed the case with the resident. I agree with the resident's findings and plan as documented. SUBJECTIVE: No fever or chills . has no pain. epistaxis but stopped and he coughed the blood OBJECTIVE: NAD, AAox3, dry blood on gown an around his nose CV: RRR, no MRG lungs: CTAB Ext: no edema, no tremors Abd: soft, obese, TTP in epigastric area, , no rebound tenderness or guarding, liver is palpated and percussed 2 cm below medial costal margin. ASSESSMENT AND PLAN: 26 y/o man with no known PMH and which alcohol, cocaine and marijuana use , who presented due to CP . he was found to have transaminitis and upper GI bleed 1- CP: MS in etiology. 2- Alcohol withdrawal: improved - ativan po standing and PRN IV ( decrease po standing ativan dose to 2 mg q 6 h) . cont taper ( have to decrease manually ) - Thiamine and folate . 3- Possible hematemesis: - cont PPI. - stable HB - iron studies do not show iron def . - Hb electropheresis for microcytic anemia pending - . for EGD this admission 4- Transaminitis: direct alcoholic toxicity or alcoholic hepatitis . discriminant function of 5 - avoid hepatotoxics - viral hepatitis indicates no previous vaccination or infection with Hep B . neg hep c serology and neg for acute Hep A 5- OCASIO :resolved ,Neg head CT 6- Possible cirrhosis : - will need further w/u possibly Bx - EGD to r/o varices 7- SCDs .
[2017-03-15] MEDS: LORazepam 1 MG TABLET PO SCH ×5 (00:04→23:08)
--- NOTE | 2017-03-15 05:34 | PN ---
Physical Exam: SUBJECTIVE: Patient seen and examined at bedside. feeling better in general, but still feeling weak. had 2 episode of epistaxis in kast 24 hours , stll complain of sore throat, intermittent chest pain. denies any fever, chills, N/V/ D/C. denies any abdominal pain, or any urinary symptoms. NPO after mid night for EGD to R/O varices.Dc Tele , transferred to med-surg. OBJECTIVE: Vital Signs Period Temp Pulse Resp BP Sys/Murphy Pulse Ox Last 24 Hr 98.2 F-99.7 F 100-112 18-20 128-141/69-88 95-99 GENERAL: The patient is awake, alert, and fully oriented, in no acute distress. HEAD: Normal with no signs of trauma. EYES: sclera anicteric, conjunctiva clear. ENT: moist mucous membranes. LUNGS: Breath sounds equal, clear to auscultation bilaterally, no wheezes, no crackles, no accessory muscle use. HEART: RRR, S1, S2 without murmur, rub or gallop. ABDOMEN: Soft, RUQ tenderness, nondistended, normoactive bowel sounds, no guarding, no rebound, EXTREMITIES: 2+ pulses, warm, well-perfused, no edema. NEUROLOGICAL: no focal deficit . Normal speech, gait not observed. PSYCH: Normal mood, normal affect. SKIN: Warm, dry, no rashes or lesions noted Laboratory Results - last 24 hr 03/14/17 03/14/17 03/14/17 06:17 06:17 06:17 WBC 4.8 RBC 4.10 Hgb 10.2 L Hct 32.1 L MCV 78.2 L MCH 25.0 L MCHC 31.9 L RDW 21.4 H Plt Count 128 L MPV 8.2 Neutrophils % No Result Required. Neutrophils % (Manual) 72.2 Band Neutrophils % 0.0 Lymphocytes % No Result Required. Lymphocytes % (Manual) 15.5 Monocytes % (Manual) 6 Eosinophils % (Manual) 2.0 Basophils % (Manual) 1.0 Myelocytes % (Man) 0 Metamyelocytes 3 H Hypochromia 2+ Platelet Estimate Decreased Anisocytosis 2+ Microcytosis 2+ Target Cells 3+ PT with INR 12.50 H INR 1.11 PTT (Actin FS) 33.4 Puncture Site ABG pH ABG pCO2 at Pt Temp ABG pO2 at Pt Temp ABG HCO3 ABG O2 Sat (Measured) ABG O2 Content ABG Base Excess Frank Test O2 Delivery Device Oxygen Flow Rate Mechanical Rate PEEP Sodium 136 Potassium 3.1 L Chloride 98 Carbon Dioxide 25 D Anion Gap 13 BUN 3 L D Creatinine 0.6 L Creat Clearance w eGFR > 60 Random Glucose 96 D Lactic Acid Calcium 8.3 L Total Bilirubin 3.1 H Direct Bilirubin 2.4 H AST 433 H ALT 222 H Alkaline Phosphatase 124 H Total Protein 7.4 Albumin 3.1 L 03/14/17 03/14/17 07:50 08:50 WBC RBC Hgb Hct MCV MCH MCHC RDW Plt Count MPV Neutrophils % Neutrophils % (Manual) Band Neutrophils % Lymphocytes % Lymphocytes % (Manual) Monocytes % (Manual) Eosinophils % (Manual) Basophils % (Manual) Myelocytes % (Man) Metamyelocytes Hypochromia Platelet Estimate Anisocytosis Microcytosis Target Cells PT with INR INR PTT (Actin FS) Puncture Site Right radial ABG pH 7.47 H ABG pCO2 at Pt Temp 35.8 ABG pO2 at Pt Temp 84.9 ABG HCO3 25.8 ABG O2 Sat (Measured) 97.3 ABG O2 Content 13.4 L ABG Base Excess 2.6 H Frank Test Positive O2 Delivery Device Room air Oxygen Flow Rate No Mechanical Rate No PEEP 0.0 Sodium Potassium Chloride Carbon Dioxide Anion Gap BUN Creatinine Creat Clearance w eGFR Random Glucose Lactic Acid 0.9 Calcium Total Bilirubin Direct Bilirubin AST ALT Alkaline Phosphatase Total Protein Albumin Active Medications Generic Name Dose Route Start Last Admin Trade Name Freq PRN Reason Stop Dose Admin Folic Acid 1 mg 03/11/17 11:00 03/14/17 09:18 Folic Acid - PO 1 mg DAILY ELIEZER Administration Sodium Chloride 1,000 mls @ 75 mls/hr 03/11/17 10:30 03/14/17 18:12 Normal Saline - IV 75 mls/hr ASDIR ELIEZER Administration Lorazepam 2 mg 03/14/17 18:00 03/15/17 00:04 Ativan - PO 2 mg Q6HPO ELIEZER Administration Lorazepam 2 mg 03/14/17 15:08 Ativan Injection - IVPUSH Q6H PRN ANXIETY Multivitamins/Minerals/Vitamin C 1 tab 03/11/17 10:00 03/14/17 09:18 Tab-A-Vit - PO 1 tab DAILY ELIEZER Administration Nystatin 1 applic 03/13/17 10:00 03/14/17 11:01 Nystop Powder - TP 1 applic DAILY ELIEZER Administration Ondansetron HCl 4 mg 03/11/17 04:52 Zofran Injection IVPUSH Q4H PRN NAUSEA AND/OR VOMITING Pantoprazole Sodium 40 mg 03/11/17 22:00 03/14/17 22:43 Protonix Iv IVPUSH 40 mg BID ELIEZER Administration Sodium Chloride 2 spray 03/11/17 19:47 03/12/17 00:10 [place] - NS 2 sprays TID PRN Administration NASAL CONGESTION Thiamine HCl 100 mg 03/11/17 10:00 03/14/17 09:18 Vitamin B1 - PO 100 mg DAILY ELIEZER Administration CBC, BMP 03/15/17 05:25 03/15/17 05:25 ASSESSMENT/PLAN: 26 y/o man with no known PMH and which alcohol, cocaine and marijuana use , who presented due to CP . he was found to have transaminitis and upper GI bleed Chest pain - Likely musculoskeletal - Dc Tele , transferred to med-surg Alcohol abuse - Gait unsteady and fine tremor observed - Cont. ativan standing and PRN (standard reduced to 2 mg Q6hr ) - PO thiamine and folic acid - Detox consult . 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 to monitor liver chemistries - f/u hep panel Hypoamgnesiemia , Hypokalemia - Mg 1.5 , K 3.4 - replinish MG 1gm po , repeat at 8 pm if low replenish - potassium phos 15 ml over 4 hours - repeat in the AM Anemia and thrombocytopenia - Likely 2/2 liver injury vs direct effect from Alcohol abuse - Cont to trend - Avoid ASA Hematemesis - Resolved - agata rick vs. variceal bleed - Cont. protonix - EGD tomorrow to r/o varices - NPO after med night FEN - NS 150 cc/hr - Hypokalemia , cont. to monitor - , low protien diet ,NPO after med night Prophylaxis - DVT: SCDs, Avoid ASA Dispo * Admitted to tele, transferred to med-surg * F/U K, Mg ,P * NPO after med night Visit type - Emergency Visit Emergency Visit: Yes ED Registration Date: 03/11/17 Care time: The patient presented to the Emergency Department on the above date and was hospitalized for further evaluation of their emergent condition. - New Patient This patient is new to me today: No - Critical Care Critical Care patient: No - Discharge Referral Referred to [facility] Med P.C.: No
[2017-03-15 07:26] LABS: HEMATOCRIT 35.1 % (35.4-49); MCH 24.6 pg (25.7-33.7); MCHC 31.2 g/dl (32.0-35.9); MEAN PLT VOLUME 8.2 fl (7.5-11.1); PLATELET COUNT 210 K/MM3 (134-434); RBC 4.45 M/mm3 (4.00-5.60); RDW 22.1 % (11.9-15.9); WHITE BLOOD COUNT 5.7 K/mm3 (4.0-10.0)
[2017-03-15 07:46] LABS: ALBUMIN 3.5 g/dl (3.4-5.0); ANION GAP 11 (8-16); CALCIUM 8.8 mg/dL (8.5-10.1); CHLORIDE 102 mmol/L (98-107); CO2 26 mmol/L (21-32); GLUCOSE,RANDOM 111 mg/dL (74-106); POTASSIUM 3.4 mmol/L (3.5-5.1); SGPT/ALT 244 U/L (12-78); SODIUM 139 mmol/L (136-145)
[2017-03-15 07:54] LABS: ALK PHOS 138 U/L (45-117); BILIRUBIN,TOTAL 2.7 mg/dL (0.2-1.0); BLOOD UREA NITROGEN 3 mg/dL (7-18); CREATININE 0.7 mg/dL (0.7-1.3); SGOT/AST 395 U/L (15-37); TOT PROT 8.3 g/dl (6.4-8.2)
[2017-03-15] MEDS ORDERED: PT OWN MED DRAWER 7, Y5N ONE (09:10)
[2017-03-15] MEDS: PANTOPRAZOLE SODIUM 40 MG VIAL IVPUSH SCH ×2 (09:41→21:55)
[2017-03-15] MEDS: NYSTATIN POWDER 100,000 UNITS/GM - 15 GM TOPICAL POWDER TP SCH (09:41)
[2017-03-15] MEDS: FOLIC ACID 1 MG TABLET (FP) PO SCH (09:41)
[2017-03-15] MEDS: MULTIVITAMINS (DAILY MVI) TABLET (FP) PO SCH (09:41)
[2017-03-15] MEDS: THIAMINE HCL 100 MG TABLET (FP) PO SCH (09:41)
[2017-03-15] MEDS: SODIUM CHLORIDE 1,000 ML IV SCH (09:42)
--- NOTE | 2017-03-15 09:59 | PN ---
Progress Note, Physician History of Present Illness: Denies tremulousness, epistaxis resolved with recovery of plt counts. - Current Medication List Current Medications: Active Medications Folic Acid (Folic Acid -) 1 mg PO DAILY [facility] Last Admin: 03/15/17 09:41 Dose: 1 mg Sodium Chloride (Normal Saline -) 1,000 mls @ 75 mls/hr IV ASDIR [facility] Last Admin: 03/15/17 09:42 Dose: 75 mls/hr Lorazepam (Ativan -) 2 mg PO Q6HPO [facility] Last Admin: 03/15/17 06:11 Dose: 2 mg Lorazepam (Ativan Injection -) 2 mg IVPUSH Q6H PRN PRN Reason: ANXIETY Multivitamins/Minerals/Vitamin C (Tab-A-Vit -) 1 tab PO DAILY [facility] Last Admin: 03/15/17 09:41 Dose: 1 tab Nystatin (Nystop Powder -) 1 applic TP DAILY [facility] Last Admin: 03/15/17 09:41 Dose: 1 applic Ondansetron HCl (Zofran Injection) 4 mg IVPUSH Q4H PRN PRN Reason: NAUSEA AND/OR VOMITING Pantoprazole Sodium (Protonix Iv) 40 mg IVPUSH BID [facility] Last Admin: 03/15/17 09:41 Dose: 40 mg Sodium Chloride ([place] -) 2 spray NS TID PRN PRN Reason: NASAL CONGESTION Last Admin: 03/12/17 00:10 Dose: 2 sprays Thiamine HCl (Vitamin B1 -) 100 mg PO DAILY [facility] Last Admin: 03/15/17 09:41 Dose: 100 mg - Objective Vital Signs: Vital Signs Temperature 99.2 F 03/15/17 05:38 Pulse Rate 110 H 03/15/17 05:38 Respiratory Rate 20 03/15/17 05:38 Blood Pressure 130/82 03/15/17 05:38 O2 Sat by Pulse Oximetry (%) 99 03/14/17 21:00 Constitutional: Yes: No Distress, Calm Neck: Yes: Supple Cardiovascular: Yes: Tachycardia Respiratory: Yes: Regular, CTA Bilaterally Gastrointestinal: Yes: Soft, Hypoactive Bowel Sounds Edema: No Labs: CBC, BMP 03/15/17 05:25 03/15/17 05:25 INR, PTT INR 1.11 (0.82-1.09) 03/14/17 06:17 - ....Imaging EKG: Report Reviewed (Tele: Sinus tachycardia) Problem List - Problems (1) Sinus tachycardia seen on phototypesetting equipment monitor Code(s): R00.0 - TACHYCARDIA, UNSPECIFIED (2) Alcohol abuse Code(s): F10.10 - ALCOHOL ABUSE, UNCOMPLICATED (3) Hepatitis Code(s): K75.9 - INFLAMMATORY LIVER DISEASE, UNSPECIFIED (4) Withdrawal symptoms, alcohol Code(s): F10.239 - ALCOHOL DEPENDENCE WITH WITHDRAWAL, UNSPECIFIED Qualifiers: Complication of substance-induced condition: uncomplicated Qualified Code(s ): F10.230 - Alcohol dependence with withdrawal, uncomplicated Assessment/Plan ASSESSMENT: 1. Acute alcohol intoxication 2. Abnormal LFT's, acute alcoholic hepatitis with probable underlying chronic liver disease 3. History of chest pain syndrome (reported), evidence of demand ischemia in context of the above noted presentation 4. Epistaxis 5. Persistent sinus tachycardia, reactionary no indication for treatment 6. Anemia PLAN: 1. As outlined no specific therapy initiation is recommended for the above noted reactionary sinus tachycardia, at this point 2. Avoid ASA at this point considering the above noted epistaxis 3. Detox as per the primary team, replete K 4. Evaluation of liver disease and EGD per GI 5. May be transferred to floor care from the cardiovascular point of view
[2017-03-15 10:29] LABS: MAGNESIUM 1.7 mg/dL (1.8-2.4); PHOSPHOROUS 1.8 mg/dL (2.5-4.9)
[2017-03-15] MEDS ORDERED: MAGNESIUM SULF 50% (8.12 MEQ/2 ML-1 GM VIAL) IVPB ONE (11:39)
[2017-03-15 11:56] LABS: ANISOCYTOSIS 2+; PLATELET ESTIMATE NORMAL; TARGET CELLS 2+
[2017-03-15] MEDS ORDERED: MAGNESIUM 1GM/D5W - 1 GM/100 ML IVPB IVPB ONE (12:00)
[2017-03-15] MEDS ORDERED: SODIUM CHLORIDE 1,000 ML IV SCH (12:45)
[2017-03-15] MEDS ORDERED: POTASSIUM PHOSPHATE 15 MM in DEXTROSE 5%-WATER - 250 ML IVPB ONE (13:15)
[2017-03-15 16:21] LABS: HGB SOLUBILITY Negative (Negative); Hgb A 98.2 % (96.4-98.8); Hgb C 0 % (0.0); Hgb F 0 % (0.0-2.0); Hgb S 0 % (0.0)
--- NOTE | 2017-03-15 18:44 | PN ---
Teaching Attending Note Name of Resident: Erick Lewis ATTENDING PHYSICIAN STATEMENT I saw and evaluated the patient. I reviewed the resident's note and discussed the case with the resident. I agree with the resident's findings and plan as documented. SUBJECTIVE: OBJECTIVE: Vital Signs Temperature 99.1 F 03/15/17 14:05 Pulse Rate 117 H 03/15/17 14:05 Respiratory Rate 18 03/15/17 14:05 Blood Pressure 135/83 03/15/17 14:05 O2 Sat by Pulse Oximetry (%) 97 03/15/17 09:00 CBCD WBC 5.7 K/mm3 (4.0-10.0) 03/15/17 05:25 RBC 4.45 M/mm3 (4.00-5.60) 03/15/17 05:25 Hgb 11.0 GM/dL (11.7-16.9) L 03/15/17 05:25 Hct 35.1 % (35.4-49) L 03/15/17 05:25 MCV 79.0 fl (80-96) L 03/15/17 05:25 MCHC 31.2 g/dl (32.0-35.9) L 03/15/17 05:25 RDW 22.1 % (11.9-15.9) H 03/15/17 05:25 Plt Count 210 K/MM3 (134-434) D 03/15/17 05:25 MPV 8.2 fl (7.5-11.1) 03/15/17 05:25 CMP Sodium 139 mmol/L (136-145) 03/15/17 05:25 Potassium 3.4 mmol/L (3.5-5.1) L 03/15/17 05:25 Chloride 102 mmol/L (98-107) 03/15/17 05:25 Carbon Dioxide 26 mmol/L (21-32) 03/15/17 05:25 Anion Gap 11 (8-16) 03/15/17 05:25 BUN 3 mg/dL (7-18) L 03/15/17 05:25 Creatinine 0.7 mg/dL (0.7-1.3) 03/15/17 05:25 Creat Clearance w eGFR > 60 (>60) 03/15/17 05:25 Random Glucose 111 mg/dL (74-106) H 03/15/17 05:25 Calcium 8.8 mg/dL (8.5-10.1) 03/15/17 05:25 Total Bilirubin 2.7 mg/dL (0.2-1.0) H 03/15/17 05:25 AST 395 U/L (15-37) H 03/15/17 05:25 ALT 244 U/L (12-78) H 03/15/17 05:25 Alkaline Phosphatase 138 U/L (45-117) H 03/15/17 05:25 Total Protein 8.3 g/dl (6.4-8.2) H 03/15/17 05:25 Albumin 3.5 g/dl (3.4-5.0) 03/15/17 05:25 CARDIAC ENZYMES Creatine Kinase 1963 IU/L (39-308) H 03/11/17 09:00 Troponin I 0.08 ng/ml (0.00-0.05) H 03/11/17 15:20 Current Medications Generic Name Dose Route Start Last Admin Trade Name Flo PRN Reason Stop Dose Admin Folic Acid 1 mg 03/11/17 11:00 03/15/17 09:41 Folic Acid - PO 1 mg DAILY ELIEZER Administration Sodium Chloride 1,000 mls @ 150 mls/hr 03/15/17 12:45 03/15/17 12:55 Normal Saline - IV 150 mls/hr ASDIR ELIEZER Administration Lorazepam 2 mg 03/14/17 18:00 03/15/17 18:06 Ativan - PO 2 mg Q6HPO ELIEZER Administration Lorazepam 2 mg 03/14/17 15:08 Ativan Injection - IVPUSH Q6H PRN ANXIETY Multivitamins/Minerals/Vitamin C 1 tab 03/11/17 10:00 03/15/17 09:41 Tab-A-Vit - PO 1 tab DAILY ELIEZER Administration Nystatin 1 applic 03/13/17 10:00 03/15/17 09:41 Nystop Powder - TP 1 applic DAILY ELIEZER Administration Ondansetron HCl 4 mg 03/11/17 04:52 Zofran Injection IVPUSH Q4H PRN NAUSEA AND/OR VOMITING Pantoprazole Sodium 40 mg 03/11/17 22:00 03/15/17 09:41 Protonix Iv IVPUSH 40 mg BID ELIEZER Administration Sodium Chloride 2 spray 03/11/17 19:47 01/14/18 00:10 [place] Nasal [place] - NS 2 sprays TID PRN Administration NASAL CONGESTION Thiamine HCl 100 mg 03/11/17 10:00 03/15/17 09:41 Vitamin B1 - PO 100 mg DAILY ELIEZER Administration Home Medications Medication Instructions Recorded NK [No Known Home Medication] 03/10/17 ASSESSMENT AND PLAN: 26 y/o man with no known PMH and which alcohol, cocaine and marijuana use , who presented due to CP . he was found to have transaminitis and upper GI bleed # CP: MS in etiology. # Alcohol withdrawal: improved - ativan po standing and PRN IV ( decrease po standing ativan dose to 2 mg q 6 h) . cont taper ( have to decrease manually ) - Thiamine and folate . # Possible hematemesis: - cont PPI. - stable HB - iron studies do not show iron def . - Hb electropheresis for microcytic anemia pending - . for EGD this admission # Transaminitis: direct alcoholic toxicity or alcoholic hepatitis . discriminant function of 5 - avoid hepatotoxics - viral hepatitis indicates no previous vaccination or infection with Hep B . neg hep c serology and neg for acute Hep A # [place] :resolved ,Neg head CT # Possible cirrhosis : - will need further w/u possibly Bx - EGD to r/o varices SCDs .
--- NOTE | 2017-03-16 05:44 | PN ---
Physical Exam: SUBJECTIVE: Patient seen and examined at bedside. doing much better today , feeling more energetic but still weak. still have epistaxis. denies any fever, chills, N/VD/C. will have EGD today , was NPO over night. OBJECTIVE: Vital Signs Period Temp Pulse Resp BP Sys/Murphy Pulse Ox Last 24 Hr 98.1 F-99.1 F 109-117 18-20 126-140/80-97 97-99 GENERAL: The patient is awake, alert, and fully oriented, in no acute distress. HEAD: Normal with no signs of trauma. EYES: sclera anicteric, conjunctiva clear. ENT: moist mucous membranes. LUNGS: Breath sounds equal, clear to auscultation bilaterally, no wheezes, no crackles, no accessory muscle use. HEART: RRR, S1, S2 without murmur, rub or gallop. ABDOMEN: Soft, non tender, nondistended, normoactive bowel sounds, no guarding, no rebound, EXTREMITIES: 2+ pulses, warm, well-perfused, no edema. NEUROLOGICAL: no focal deficit . Normal speech, gait not observed. PSYCH: Normal mood, normal affect. SKIN: Warm, dry, no rashes or lesions noted Laboratory Results - last 24 hr 03/12/17 03/15/17 03/15/17 16:00 05:25 05:25 WBC 5.7 RBC 4.45 Hgb 11.0 L Hct 35.1 L MCV 79.0 L MCH 24.6 L MCHC 31.2 L RDW 22.1 H Plt Count 210 D MPV 8.2 Neutrophils % No Result Required. Neutrophils % (Manual) 56.1 D Band Neutrophils % 0.0 Lymphocytes % No Result Required. Lymphocytes % (Manual) 22.5 D Monocytes % (Manual) 12 H D Eosinophils % (Manual) 4.1 D Basophils % (Manual) 3.1 H D Myelocytes % (Man) 1 D Metamyelocytes 1 D Hypochromia 1+ Platelet Estimate Normal Polychromasia 1+ Anisocytosis 2+ Microcytosis 1+ Target Cells 2+ Hemoglobin A 98.2 Hemoglobin A2 1.8 Hemoglobin C 0 Hemoglobin S 0 Variant Hemoglobin TNP Hemoglobin Interpret Maternal Rh 0 Hemoglobin Solubility Negative Sodium 139 Potassium 3.4 L Chloride 102 Carbon Dioxide 26 Anion Gap 11 BUN 3 L Creatinine 0.7 Creat Clearance w eGFR > 60 Random Glucose 111 H Calcium 8.8 Phosphorus 1.8 L D Magnesium 1.7 L Total Bilirubin 2.7 H AST 395 H ALT 244 H Alkaline Phosphatase 138 H Total Protein 8.3 H Albumin 3.5 03/15/17 03/15/17 03/15/17 05:25 12:05 21:45 WBC RBC Hgb Hct MCV MCH MCHC RDW Plt Count MPV Neutrophils % Neutrophils % (Manual) Band Neutrophils % Lymphocytes % Lymphocytes % (Manual) Monocytes % (Manual) Eosinophils % (Manual) Basophils % (Manual) Myelocytes % (Man) Metamyelocytes Hypochromia Platelet Estimate Polychromasia Anisocytosis Microcytosis Target Cells Hemoglobin A Hemoglobin A2 Hemoglobin C Hemoglobin S Variant Hemoglobin Hemoglobin Interpret Maternal Rh Hemoglobin Solubility Sodium Potassium Chloride Carbon Dioxide Anion Gap BUN Creatinine Creat Clearance w eGFR Random Glucose Calcium Phosphorus Cancelled Magnesium Cancelled 1.5 L 1.7 L Total Bilirubin AST ALT Alkaline Phosphatase Total Protein Albumin Active Medications Generic Name Dose Route Start Last Admin Trade Name Freq PRN Reason Stop Dose Admin Folic Acid 1 mg 03/11/17 11:00 03/15/17 09:41 Folic Acid - PO 1 mg DAILY ELIEZER Administration Sodium Chloride 1,000 mls @ 150 mls/hr 03/15/17 12:45 03/15/17 12:55 Normal Saline - IV 150 mls/hr ASDIR ELIEZER Administration Lorazepam 2 mg 03/14/17 18:00 03/15/17 23:08 Ativan - PO 2 mg Q6HPO ELIEZER Administration Lorazepam 2 mg 03/14/17 15:08 Ativan Injection - IVPUSH Q6H PRN ANXIETY Multivitamins/Minerals/Vitamin C 1 tab 03/11/17 10:00 03/15/17 09:41 Tab-A-Vit - PO 1 tab DAILY ELIEZER Administration Nystatin 1 applic 03/13/17 10:00 03/15/17 09:41 Nystop Powder - TP 1 applic DAILY ELIEZER Administration Ondansetron HCl 4 mg 03/11/17 04:52 Zofran Injection IVPUSH Q4H PRN NAUSEA AND/OR VOMITING Pantoprazole Sodium 40 mg 03/11/17 22:00 03/15/17 21:55 Protonix Iv IVPUSH 40 mg BID ELIEZER Administration Sodium Chloride 2 spray 03/11/17 19:47 03/12/17 00:10 [place] Nasal [place] - NS 2 sprays TID PRN Administration NASAL CONGESTION Thiamine HCl 100 mg 03/11/17 10:00 03/15/17 09:41 Vitamin B1 - PO 100 mg DAILY ELIEZER Administration CBC, BMP 03/16/17 06:05 03/16/17 06:05 ASSESSMENT/PLAN: 26 y/o man with no known PMH and which alcohol, cocaine and marijuana use , who presented due to CP . he was found to have transaminitis and upper GI bleed Chest pain - Likely musculoskeletal - Dc Tele , transferred to med-surg Alcohol abuse - Gait unsteady and fine tremor observed - Cont. ativan standing and PRN (standard reduced to 2 mg Q6hr ) - PO thiamine and folic acid - Detox consult . 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 to monitor liver chemistries - f/u hep panel Hypoamgnesiemia , Hypokalemia - Mg 1.5 , K 3.4 - replinish MG 1gm po , repeat at 8 pm if low replenish - potassium phos 15 ml over 4 hours - repeat in the AM Anemia and thrombocytopenia - Likely 2/2 liver injury vs direct effect from Alcohol abuse - Cont to trend - Avoid ASA Hematemesis - Resolved - agata rick vs. variceal bleed - Cont. protonix - EGD tomorrow to r/o varices - NPO after med night FEN - NS 150 cc/hr - Hypokalemia , cont. to monitor - , low protien diet ,NPO after med night Prophylaxis - DVT: SCDs, Avoid ASA Dispo * Admitted to tele, transferred to med-surg * F/U K, Mg ,P * NPO after med night Visit type - Emergency Visit Emergency Visit: Yes ED Registration Date: 03/11/17 Care time: The patient presented to the Emergency Department on the above date and was hospitalized for further evaluation of their emergent condition. - New Patient This patient is new to me today: No - Critical Care Critical Care patient: No - Discharge Referral Referred to [facility] Med P.C.: No
[2017-03-16] MEDS: LORazepam 1 MG TABLET PO SCH ×3 (06:14→12:40)
[2017-03-16 06:46] LABS: BASO % 3.2 % (0-2.0); EOS % 4.7 % (0-4.5); HEMATOCRIT 31.9 % (35.4-49); HEMOGLOBIN 10.3 GM/dL (11.7-16.9); LYMPH % 23.9 % (8-40); MCH 25.8 pg (25.7-33.7); MCHC 32.4 g/dl (32.0-35.9); MEAN CELL VOLUME 79.7 fl (80-96); MONO % 21.3 % (3.8-10.2); NEUT % 46.9 % (42.8-82.8); PLATELET COUNT 264 K/MM3 (134-434); RBC 4.01 M/mm3 (4.00-5.60); RDW 23.4 % (11.9-15.9); WHITE BLOOD COUNT 4.7 K/mm3 (4.0-10.0)
[2017-03-16 07:11] LABS: ALBUMIN 3.1 g/dl (3.4-5.0); ALK PHOS 153 U/L (45-117); ANION GAP 9 (8-16); BILIRUBIN,TOTAL 1.9 mg/dL (0.2-1.0); BLOOD UREA NITROGEN 4 mg/dL (7-18); CALCIUM 8.2 mg/dL (8.5-10.1); CHLORIDE 106 mmol/L (98-107); CO2 26 mmol/L (21-32); CREATININE 0.6 mg/dL (0.7-1.3); GLUCOSE,RANDOM 111 mg/dL (74-106); MAGNESIUM 1.7 mg/dL (1.8-2.4); PHOSPHOROUS 2.5 mg/dL (2.5-4.9); POTASSIUM 3.5 mmol/L (3.5-5.1); SGOT/AST 318 U/L (15-37); SGPT/ALT 224 U/L (12-78); SODIUM 141 mmol/L (136-145); TOT PROT 7.6 g/dl (6.4-8.2)
[2017-03-16] MEDS ORDERED: PROPOFOL 20 ML ONE ×2 (08:38)
--- NOTE | 2017-03-16 09:31 | PROC ---
Endoscopy Procedure Endoscopy procedure completed. Please see scanned procedure report. Mild gastritis otherwise normal exam. Follow biopsies in 1 week in office
[2017-03-16 09:40] VITALS: TEMP 97.8
[2017-03-16 10:17] VITALS: BP 121/71; PULSE 86
[2017-03-16] MEDS: PANTOPRAZOLE SODIUM 40 MG VIAL IVPUSH SCH (10:38)
[2017-03-16] MEDS: THIAMINE HCL 100 MG TABLET (FP) PO SCH (10:41)
[2017-03-16] MEDS: FOLIC ACID 1 MG TABLET (FP) PO SCH (10:41)
[2017-03-16] MEDS: MULTIVITAMINS (DAILY MVI) TABLET (FP) PO SCH (10:41)
[2017-03-16] MEDS: NYSTATIN POWDER 100,000 UNITS/GM - 15 GM TOPICAL POWDER TP SCH (10:46)
--- NOTE | 2017-03-16 12:16 | DS ---
Physical Exam: SUBJECTIVE: Patient seen and examined at bed side doing much better , feel more energitic, will be discharged home , EGD was done today with no complication and dis not show any acute pathology.will follow up as out patient for biopsy result. Patient did not have any withdrawal symptoms and stable to go home. OBJECTIVE: Vital Signs Period Temp Pulse Resp BP Sys/Murphy Pulse Ox Last 24 Hr 97.8 F-99.1 F 85-117 14-20 110-140/70-97 98-99 PHYSICAL EXAM GENERAL: The patient is awake, alert, and fully oriented, in no acute distress. HEAD: Normal with no signs of trauma. EYES: sclera anicteric, conjunctiva clear. ENT: moist mucous membranes. LUNGS: Breath sounds equal, clear to auscultation bilaterally, no wheezes, no crackles, no accessory muscle use. HEART: RRR, S1, S2 without murmur, rub or gallop. ABDOMEN: Soft, non tender, nondistended, normoactive bowel sounds, no guarding, no rebound, EXTREMITIES: 2+ pulses, warm, well-perfused, no edema. NEUROLOGICAL: no focal deficit . Normal speech, gait not observed. PSYCH: Normal mood, normal affect. SKIN: Warm, dry, no rashes or lesions noted LABS Laboratory Results - last 24 hr 03/12/17 03/15/17 03/15/17 16:00 12:05 21:45 WBC RBC Hgb Hct MCV MCH MCHC RDW Plt Count MPV Neutrophils % Lymphocytes % Monocytes % Eosinophils % Basophils % Hemoglobin A 98.2 Hemoglobin A2 1.8 Hemoglobin C 0 Hemoglobin S 0 Variant Hemoglobin TNP Hemoglobin Interpret Maternal Rh 0 Hemoglobin Solubility Negative Sodium Potassium Chloride Carbon Dioxide Anion Gap BUN Creatinine Creat Clearance w eGFR Random Glucose Calcium Phosphorus Magnesium 1.5 L 1.7 L Total Bilirubin AST ALT Alkaline Phosphatase Total Protein Albumin 03/16/17 03/16/17 06:05 06:05 WBC 4.7 RBC 4.01 Hgb 10.3 L Hct 31.9 L MCV 79.7 L MCH 25.8 MCHC 32.4 RDW 23.4 H Plt Count 264 D MPV 8.0 Neutrophils % 46.9 D Lymphocytes % 23.9 D Monocytes % 21.3 H D Eosinophils % 4.7 H Basophils % 3.2 H Hemoglobin A Hemoglobin A2 Hemoglobin C Hemoglobin S Variant Hemoglobin Hemoglobin Interpret Maternal Rh Hemoglobin Solubility Sodium 141 Potassium 3.5 Chloride 106 Carbon Dioxide 26 Anion Gap 9 BUN 4 L D Creatinine 0.6 L Creat Clearance w eGFR > 60 Random Glucose 111 H Calcium 8.2 L Phosphorus 2.5 D Magnesium 1.7 L Total Bilirubin 1.9 H D AST 318 H ALT 224 H Alkaline Phosphatase 153 H Total Protein 7.6 Albumin 3.1 L HOSPITAL COURSE: Date of Admission:03/11/17 Date of Discharge: 03/16/17 26 y/o man with no known PMH and which alcohol, cocaine and marijuana use , who presented due to CP . he was found to have transaminitis and upper GI bleed In term of chest pain musculosceletal in etiology. In term of Alcohol withdrawal: improved was treated with Ativan po standing and PRN IV ( decrease po standing ativan dose to 2 mg q 6 h) . and Thiamine and folate . He was found to have hematemesis, treated with PPI. HB was stable , iron studies do not show iron def . EGD this admission was done did show gastroenteritis In ter of Transaminitis: direct alcoholic toxicity or alcoholic hepatitis . discriminant function of 5 - viral hepatitis indicates no previous vaccination or infection with Hep B . neg hep c serology and neg for acute Hep A he has a Headche :resolved ,Neg head CT In term of Possible cirrhosis : will need further w/u possibly Bx EGD negative for variances, will follow up as out patient for Biopsy result with Patient is stable to discharged home. Minutes to complete discharge: 30 Discharge Summary Reason For Visit: ALCOHOL WITHDRAWAL SYNDROME Current Active Problems Cocaine abuse (Acute) Sinus tachycardia seen on quality assurance monitor (Acute) Withdrawal symptoms, alcohol (Acute) Alcohol abuse (Chronic) Hematemesis (Chronic) Hepatitis (Chronic) Condition: Stable - Instructions Diet, Activity, Other Instructions: You were admitted to the hospital for chest pain and for alcohol withdrawal. Please take your medicine as prescribed B-complex vitamin 100mg daily Please follow up with your primary care physician within a week ([facility] Monday After 12 pm ) Please follow up with ( Stomach Doctor) within a week for the biopsy result Please stop drinking alcohol completely to avoid any complications included but not limited to liver damage , inflammation in your stomach. low blood count, damage to your brain. If your symptoms worsen or you develop fever, chills, or sever chest pain come back to emergency room as soon as possible or call 911. will refer you for Alcoholic anonymous program. Referrals: Dl Whiteside MD [Staff Physician] - 1 Week Timoteo Santoyo MD [Staff Physician] - 1 Week Disposition: HOME - Home Medications Comprehensive Discharge Medication List: Ambulatory Orders Folic Acid - 1 mg PO DAILY 30 Days #30 tablet 03/16/17 Thiamine HCl [Vitamin B1 -] 100 mg PO DAILY 30 Days #30 tablet 03/16/17 This patient is new to me today: No Emergency Visit: Yes ED Registration Date: 03/11/17 Care time: The patient presented to the Emergency Department on the above date and was hospitalized for further evaluation of their emergent condition. Critical Care patient: No - Discharge Referral Referred to [facility] No
--- NOTE | 2017-03-16 12:28 | PN ---
Progress Note, Physician Chief Complaint: Not in distress History of Present Illness: Patient was seen and examined. Awake and alert. Chart was reviewed Denies chest pain, SOB or palpitations - Current Medication List Current Medications: Active Medications Folic Acid (Folic Acid -) 1 mg PO DAILY [facility] Last Admin: 03/16/17 10:41 Dose: 1 mg Sodium Chloride (Normal Saline -) 1,000 mls @ 150 mls/hr IV ASDIR [facility] Last Admin: 03/15/17 12:55 Dose: 150 mls/hr Lorazepam (Ativan -) 2 mg PO Q6HPO [facility] Last Admin: 03/16/17 06:14 Dose: 2 mg Lorazepam (Ativan Injection -) 2 mg IVPUSH Q6H PRN PRN Reason: ANXIETY Magnesium Oxide (Mag-Ox -) 800 mg PO ONCE ONE Stop: 03/16/17 12:31 Multivitamins/Minerals/Vitamin C (Tab-A-Vit -) 1 tab PO DAILY [facility] Last Admin: 03/16/17 10:41 Dose: 1 tab Nystatin (Nystop Powder -) 1 applic TP DAILY [facility] Last Admin: 03/16/17 10:46 Dose: 1 applic Ondansetron HCl (Zofran Injection) 4 mg IVPUSH Q4H PRN PRN Reason: NAUSEA AND/OR VOMITING Pantoprazole Sodium (Protonix Iv) 40 mg IVPUSH BID [facility] Last Admin: 03/16/17 10:38 Dose: 40 mg Sodium Chloride ([place]al [place] -) 2 spray NS TID PRN PRN Reason: NASAL CONGESTION Last Admin: 03/12/17 00:10 Dose: 2 sprays Thiamine HCl (Vitamin B1 -) 100 mg PO DAILY [facility] Last Admin: 03/16/17 10:41 Dose: 100 mg - Objective Vital Signs: Vital Signs Temperature 97.8 F 03/16/17 10:17 Pulse Rate 86 03/16/17 10:17 Respiratory Rate 20 03/16/17 10:17 Blood Pressure 121/71 03/16/17 10:17 O2 Sat by Pulse Oximetry (%) 99 03/16/17 10:17 Eyes: Yes: PERRL HENT: Yes: Atraumatic Neck: Yes: Supple Cardiovascular: Yes: Regular Rate and Rhythm, S1, S2 Respiratory: Yes: CTA Bilaterally Gastrointestinal: Yes: Normal Bowel Sounds, Soft. No: Tenderness Edema: No Labs: CBC, BMP 03/16/17 06:05 03/16/17 06:05 INR, PTT INR 1.11 (0.82-1.09) 03/14/17 06:17 Problem List - Problems (1) Sinus tachycardia seen on radiographer cardiac catheterization Code(s): R00.0 - TACHYCARDIA, UNSPECIFIED (2) Alcohol abuse Code(s): F10.10 - ALCOHOL ABUSE, UNCOMPLICATED (3) Hepatitis Code(s): K75.9 - INFLAMMATORY LIVER DISEASE, UNSPECIFIED Assessment/Plan 1. Acute alcohol intoxication 2. Abnormal LFT's, acute alcoholic hepatitis with probable underlying chronic liver disease 3. History of chest pain syndrome (reported), evidence of demand ischemia in context of the above noted presentation 4. Epistaxis 5. Persistent sinus tachycardia, reactionary no indication for treatment 6. Anemia PLAN: 1. As outlined no specific therapy is recommended for the above noted reactionary sinus tachycardia 2. Avoid ASA at this point considering the above noted epistaxis 3. Detox and abstinence from ETOH 4. GI eval and EGD noted Further plans are to follow Rod Velázquez MD
[2017-03-16] MEDS ORDERED: MAGNESIUM OXIDE 400 MG TABLET (FP) PO ONE (12:30)
--- NOTE | 2017-03-16 14:58 | CONSULT ---
Consult Detox S - Alcohol/Substance Use Hx Alcohol Use: Yes (3 BOTTLES OF VODKA DAILY) - Past Medical History Psych: Yes: Addictions (alcohol, cocaine) - Past Surgical History Additional Surgical History: Unable to obtain
--- NOTE | 2017-03-16 15:04 | PN ---
[facility] Progress Note Note: pateint discharged home prior to completion of consultation.
--- NOTE | 2017-03-16 17:19 | PN ---
Teaching Attending Note Name of Resident: Erick Lewis ATTENDING PHYSICIAN STATEMENT I saw and evaluated the patient. I reviewed the resident's note and discussed the case with the resident. I agree with the resident's findings and plan as documented. SUBJECTIVE: OBJECTIVE: Vital Signs Temperature 97.8 F 03/16/17 10:17 Pulse Rate 86 03/16/17 10:17 Respiratory Rate 20 03/16/17 10:17 Blood Pressure 121/71 03/16/17 10:17 O2 Sat by Pulse Oximetry (%) 99 03/16/17 10:17 CBCD WBC 4.7 K/mm3 (4.0-10.0) 03/16/17 06:05 RBC 4.01 M/mm3 (4.00-5.60) 03/16/17 06:05 Hgb 10.3 GM/dL (11.7-16.9) L 03/16/17 06:05 Hct 31.9 % (35.4-49) L 03/16/17 06:05 MCV 79.7 fl (80-96) L 03/16/17 06:05 MCHC 32.4 g/dl (32.0-35.9) 03/16/17 06:05 RDW 23.4 % (11.9-15.9) H 03/16/17 06:05 Plt Count 264 K/MM3 (134-434) D 03/16/17 06:05 MPV 8.0 fl (7.5-11.1) 03/16/17 06:05 CMP Sodium 141 mmol/L (136-145) 03/16/17 06:05 Potassium 3.5 mmol/L (3.5-5.1) 03/16/17 06:05 Chloride 106 mmol/L (98-107) 03/16/17 06:05 Carbon Dioxide 26 mmol/L (21-32) 03/16/17 06:05 Anion Gap 9 (8-16) 03/16/17 06:05 BUN 4 mg/dL (7-18) L D 03/16/17 06:05 Creatinine 0.6 mg/dL (0.7-1.3) L 03/16/17 06:05 Creat Clearance w eGFR > 60 (>60) 03/16/17 06:05 Random Glucose 111 mg/dL (74-106) H 03/16/17 06:05 Calcium 8.2 mg/dL (8.5-10.1) L 03/16/17 06:05 Total Bilirubin 1.9 mg/dL (0.2-1.0) H D 03/16/17 06:05 AST 318 U/L (15-37) H 03/16/17 06:05 ALT 224 U/L (12-78) H 03/16/17 06:05 Alkaline Phosphatase 153 U/L (45-117) H 03/16/17 06:05 Total Protein 7.6 g/dl (6.4-8.2) 03/16/17 06:05 Albumin 3.1 g/dl (3.4-5.0) L 03/16/17 06:05 CARDIAC ENZYMES Creatine Kinase 1963 IU/L (39-308) H 03/11/17 09:00 Troponin I 0.08 ng/ml (0.00-0.05) H 03/11/17 15:20 Home Medications Medication Instructions Recorded Folic Acid - 1 mg PO DAILY 30 Days #30 tablet 03/16/17 Thiamine HCl [Vitamin B1 -] 100 mg PO DAILY 30 Days #30 tablet 03/16/17 ASSESSMENT AND PLAN:
--- NOTE | 2017-03-17 12:51 | PATH ---
Surgical Pathology Report Patient Name: YAMILA OSBORNE Med. Rec. #: [id number] /Age/Gender: 1990 (Age: 26) / M Account: [id number] Location: 4 W TELEMETRY U Taken: 03/16/2017 Received: 03/16/2017 Reported: 03/17/2017 Physicians: Shaggy Nava M.D. Specimen(s) Received BX STOMACH Clinical History Preoperative diagnosis: Hematemesis Postoperative diagnosis: Gastritis Final Diagnosis STOMACH, BIOPSY: GASTRIC OXYNTIC TYPE MUCOSA WITH MILD CHRONIC GASTRITIS. IMMUNOHISTOCHEMICAL STAIN FOR H. PYLORI IS NEGATIVE. Electronically Signed Naomi Skinner M.D. Gross Description Received in formalin, labeled "biopsy stomach" are 3 blanchard, irregular portions of soft tissue averaging 0.4 cm. in greatest dimension. The specimens are submitted in toto in one cassette. /03/16/2017 saudi03/16/2017
== END 2017-03-16 15:04 | disposition home or self-care (01) | DRG 774 ==
LOC: JER 17:50 → JERBED 03-11 00:13 → UNDOADMIN 03-11 00:23 → JERBED 03-11 00:23 → J5S 03-11 08:52 → J4W 03-11 15:11 → J5S 03-11 15:46 → J4W 03-11 18:45
PROVIDERS: ADMIT Internal Medicine; ATTEND Internal Medicine
PROC: HZ2ZZZZ Detoxification Services for Substance Abuse Treatment (ICD-10-PCS; principal; 2017-03-11)
PROC: 30233R1 Transfusion of Nonautologous Platelets into Peripheral Vein, Percutaneous Approach (ICD-10-PCS; 2017-03-11)
PROC: 0DD68ZX Extraction of Stomach, Via Natural or Artificial Opening Endoscopic, Diagnostic (ICD-10-PCS; 2017-03-16)
DX: F10.239 Alcohol dependence with withdrawal, unspecified (principal); R07.9 Chest pain, unspecified; R11.0 Nausea; R74.0 Nonspecific elevation of levels of transaminase and lactic acid dehydrogenase [LDH]; E87.1 Hypo-osmolality and hyponatremia; R04.0 Epistaxis; D64.9 Anemia, unspecified; R00.0 Tachycardia, unspecified; K70.10 Alcoholic hepatitis without ascites; R51 Headache; F14.10 Cocaine abuse, uncomplicated; E83.42 Hypomagnesemia; E87.6 Hypokalemia; D69.6 Thrombocytopenia, unspecified; K92.0 Hematemesis; F17.210 Nicotine dependence, cigarettes, uncomplicated; K29.50 Unspecified chronic gastritis without bleeding; B37.0 Candidal stomatitis; K74.60 Unspecified cirrhosis of liver
CPT/HCPCS: 36415; 36430; 36600; 70450-TC; 71045-TC; 71046-TC; 71111-TC; 76705-TC; 80048; 80053; 80074; 80076; 80307; 81003; 81015; 82150; 82248; 82550; 82553; 82607; 82728; 82803; 82962; 83021; 83540; 83550; 83605; 83690; 83735; 84100; 84478; 84484; 85025; 85027; 85610; 85660; 85730; 86708; 86850; 86900; 86901; 87389; 88305-TC; 93005; 93010; 93306-TC; 99284-25; P9034